=== PATIENT | male | born 1945 | race Caucasian/White ===

== ENCOUNTER 2019-05-19 09:28 | Outpatient (CLI) | payer MEDICARE, SELFPAY | END 2019-05-19 09:29 | disposition home or self-care (01) | PROVIDERS: PCP Internal Medicine; Visit Provider Internal Medicine | DX: Z01.810 Encounter for preprocedural cardiovascular examination (principal) | CPT/HCPCS: 87081 ==

== ENCOUNTER 2019-06-06 09:34 | Outpatient (CLI) | payer MEDICARE, SELFPAY ==
--- NOTE | ~2019-06-06 | US_ITS ---
EXAMINATION: US retroperitoneal duplex ltd DATE: 06/06/2019 10:33 INDICATION: Hypertension. TECHNIQUE: Multiple grayscale, color Doppler, and pulsed Doppler images of the kidneys and renal fredrick robert were obtained. COMPARISON: CT abdomen and pelvis 06/23/2010 FINDINGS: The aorta peak systolic velocity is 68 cm/s. The right renal artery peak systolic velocity is 124 cm/ s in the proximal segment, 204 cm/s in the mid segment, and 237 cm/s in the distal segment. The left renal artery peak systolic velocity is 124 cm/s in the proximal segment, 218 cm/s in the mid segment, and 164 cm/s in the distal segment. IMPRESSION: 1. Elevated bilateral renal artery peak systolic velocities, consistent with bilateral renal artery stenosis. Note that the prior CT demonstrated no significant renal artery stenosis. Consider abdomen CTA. Reviewed, dictated and finalized at location A. FLAP BINDER IMPRESSION: 1. Elevated bilateral renal artery peak systolic velocities, consistent with b ilateral renal artery stenosis. Note that the prior CT demonstrated no signific ant renal artery stenosis. Consider abdomen CTA.
== END 2019-06-06 09:35 | disposition home or self-care (01) ==
LOC: ANHIMG 09:37
PROVIDERS: PCP Internal Medicine; Visit Provider Internal Medicine
DX: I10 Essential (primary) hypertension (principal); R93.5 Abnormal findings on diagnostic imaging of other abdominal regions, including retroperitoneum
CPT/HCPCS: 93976

== ENCOUNTER 2019-06-06 10:41 | Outpatient (CLI) | payer MEDICARE, SELFPAY ==
--- NOTE | 2019-06-12 16:25 | SLEEP_ITS ---
Basic Nocturnal Polysomnogram. DATE OF STUDY: 06/06/2019 REASON FOR STUDY: Hypersomnolence. HISTORY: This patient is a 74-year-old male, 67 inches tall, weighing 174 pounds with a body mass index of 27.2. He is retired, has a history of poor quality sleep with frequent snoring, which is loud enough that others complain about it. There is no family history of sleep-disordered breathing. He denies having trouble sleeping with a cold or gasping for breath at night. He denies other people complaining about his sleep. He denies sweating excessively at night or his heart pounding irregularly at night. He does not fall asleep during the day, does not fall asleep involuntarily or while driving. He does not have loss of muscle tone with strong emotion. He does not feel paralyzed on waking or falling asleep and does not have vivid dreamlike scene upon waking or falling asleep. He is never afraid to go to sleep. There are no nightmares. He does not recall having dreams. He rarely has racing thoughts. He does not feel sad, depressed, anxious, or have muscular tension. He does not notice parts of his body jerking. He denies kicking at night. He denies a crawly achy feeling in his legs. He does not have leg pain at night. He denies morning jaw pain. He rarely grinds his teeth at night. He is not bothered by pain during the day or at night. He does not wake up feeling stiff in the morning. Bedtime is 10:00 p.m., taking 30 to 40 minutes to fall asleep, waking twice at night. When he is awake at night, he will stay awake for 30 to 40 minutes. During this time, he will go to the bathroom. He wakes in the morning at 06:00 a.m. He estimates 8 hours of sleep at night. He denies taking naps. Naps are not refreshing. He feels better in the morning than other times of day. MEDICAL COMORBIDITIES: 1. He is due to have a right knee replacement on June 14. 2. Hyperlipidemia. 3. Hypertension. 4. Hypothyroidism. 5. Diabetes mellitus. 6. Leg cramps. MEDICATIONS: 1. Atorvastatin 40 mg a day. 2. Diltiazem 240 mg a day. 3. Hydralazine 50 mg 3 times a day. 4. Levothyroxine 75 mg a day. 5. Glimepiride 4 mg daily. 6. Tradjenta 5 mg a day. 7. Aspirin 81 mg a day. 8. Magnesium replacement once in the evening for leg cramps. 9. Fish oil 1200 mg twice a day. 10. Tylenol t.i.d. p.r.n., pain. HABITS: Quit tobacco in 1969. Currently does use alcohol. No mention about caffeine. DESCRIPTION OF THE STUDY: On the [place] Sleepiness Scale, the patient marked 0. This test was performed in lab as an unattended study using the [employer] multiple channel system including EOG, EEG, submental EMG, EKG, nasal and oral airflow using thermistor and nasal pressure sensors, chest and abdominal belts, body position data and pulse oximetry. This study was scored using [facility] guidelines. It was requested as a split night, but the patient had such fragmented sleep was not possible to acquire sufficient data early enough in the night. The patient had recording time of 454 minutes. The sleep time was 232 minutes. Sleep efficiency was extremely low 51.1%. Sleep latency was 10.9 minutes until the first minute of sleep. However, during the first hour plus, the patient was mainly awake. It is not mention whether or not the patient took an Ambien, but it does not appear that he took it. The REM latency was prolonged at 382.5 minutes. There were 66 awakenings and the patient spent 47.7% of the study, awake after sleep onset 211 minutes. Sleep architecture showed 9.5% stage 1 sleep, 39.7% stage 2 sleep, no stage 3 sleep and only 3.2% stage REM, 14 minutes. The patient spent 3.2% of the study supine, the remainder was nonsupine. Sleep architecture was abnormal with the majority of the night fragmen
== END 2019-06-06 10:42 | disposition home or self-care (01) ==
PROVIDERS: PCP Internal Medicine; Visit Provider Internal Medicine
DX: G47.10 Hypersomnia, unspecified (principal); G47.33 Obstructive sleep apnea (adult) (pediatric); G47.61 Periodic limb movement disorder; I10 Essential (primary) hypertension; E11.9 Type 2 diabetes mellitus without complications; G47.62 Sleep related leg cramps; E03.9 Hypothyroidism, unspecified
CPT/HCPCS: 93976; 95810

== ENCOUNTER 2020-07-17 10:44 | Outpatient (CLI) | payer MEDICARE, SELFPAY ==
--- NOTE | ~2020-07-17 | XR_ITS ---
EXAMINATION:XR_CERV2-3V_CR DATE: 07/17/2020 11:16 INDICATION: Neck pain TECHNIQUE: Lateral views of the neck in neutral, flexion, and extension are obtained. COMPARISON: None FINDINGS: There are 2 mm of anterolisthesis of C3 on C4 and C4 on C5. No laxity is present with flexi on or extension. There is no fracture. The odontoid is intact. There are changes of anterior fusion f rom C5 through C7 with interbody device placement. The vertebral body heights are maintained. There i s moderate multilevel facet osteoarthritis. Prevertebral soft tissues are normal. IMPRESSION: 1. Moderate cervical spondylosis and changes of anterior fusion without acute findings. Reviewed, dictated and finalized at location A. IMPRESSION: 1. Moderate cervical spondylosis and changes of anterior fusion without acute f indings.
== END 2020-07-17 10:45 | disposition home or self-care (01) ==
LOC: ANHIMG 10:52
PROVIDERS: PCP Internal Medicine; Visit Provider Internal Medicine
DX: M47.812 Spondylosis without myelopathy or radiculopathy, cervical region (principal)
CPT/HCPCS: 72040

== ENCOUNTER → 2021-04-04 07:28 | Outpatient (CLI) | payer MEDICARE, SELFPAY ==
--- NOTE | ~2021-04-04 | MR_ITS ---
EXAMINATION: MR cervical spine wo con EXAM DATE: 04/04/2021 08:17 INDICATION: Cervicalgia neck pain to left shoulder x6mos, prev c-sp surg x12yrs. TECHNIQUE: Multi-sequential, multiplanar MR images of the cervical spine were obtained without contra st. Axial T2, axial T2 MERGE sequence. Sagittal T1, T2, T2 fat saturation images also obtained. Com parison is made to prior examination from 03/04/2011. FINDINGS: Compared to 2011, cervical fusion C5-7. There is moderate disc disease at C4-5 with 2 mm a nterolisthesis. Mild to moderate disc disease at C7-T1. The spinal cord signal intensity and intrinsi c morphology is normal. Cervicomedullary junction is normal in appearance. Paraspinal soft tissue is unremarkable. Level by level evaluation: C2-C3: Disc does not extend beyond the endplate margin. Uncovertebral joint arthropathy: Mild to moderate left. Facet joint arthropathy: Moderate to severe left, mild to moderate right. Neural foraminal stenosis: Moderate to severe left. Central canal stenosis: No stenosis. C3-C4: There is a mild diffuse disc bulge. Uncovertebral joint arthropathy: Moderate bilateral. Facet joint arthropathy: Moderate to severe bilateral. Neural foraminal stenosis: Moderate to severe bilateral. Central canal stenosis: No stenosis. C4-C5: There is a mild to moderate diffuse disc bulge. Uncovertebral joint arthropathy: Moderate bilateral. Facet joint arthropathy: Severe left, moderate right. Neural foraminal stenosis: Moderate to severe left, moderate right. Central canal stenosis: Mild. C5-C6: This level is fused. Uncovertebral joint arthropathy: Moderate to severe but fused right. Moderate left. Facet joint arthropathy: Moderate bilateral. Neural foraminal stenosis: Moderate bilateral. Central canal stenosis: No stenosis. C6-C7: This level is fused. Uncovertebral joint arthropathy: Moderate but fused bilateral. Facet joint arthropathy: Mild to moderate bilateral. Neural foraminal stenosis: Moderate left, mild to moderate right. Central canal stenosis: No stenosis. C7-T1: Disc does not extend beyond the endplate margin. Uncovertebral joint arthropathy: Moderate bilateral. Facet joint arthropathy: Moderate left, mild right. Neural foraminal stenosis: Moderate left, mild right. Central canal stenosis: No stenosis. IMPRESSION: 1. C5-7 cervical fusion. 2. Multilevel neural foraminal stenosis as detailed above. Reviewed, dictated and finalized at location B. ICAL LIBRARIAN
--- NOTE | ~2021-04-04 | XR_ITS ---
XR lumbar spine 2-3V DATE: 04/04/2021 08:38 INDICATION: Low back pain TECHNIQUE: AP, lateral, coned lateral lumbosacral views COMPARISON: None FINDINGS: There is diffuse osteopenia. There is mild dextroscoliosis of the thoracolumbar spine. Diffuse idiopathic skeletal hyperostosis of the thoracic spine. Prominent multilevel degenerative disc disease of the lumbar spine, moderately severe to L2-L3 4 and severe L4-5 and L5-S1. No fracture or bone destruction is evident. The lumbar pedicles are intact. The sacroiliac joints are intact. Abdominal aortic calcification, without apparent aneurysm. IMPRESSION: Degenerative disc disease of the lumbar and lumbosacral spine Diffuse idiopathic skeletal hyperostosis of the thoracic spine. Mild dextro scoliosis of the thoracolumbar spine Reviewed, dictated and finalized at location A. DING MATERIALS SALES ATTENDANT
== END ==
PROVIDERS: PCP Internal Medicine; Visit Provider Nurse Practitioner Family
DX: M54.2 Cervicalgia (principal); Z98.1 Arthrodesis status; M48.02 Spinal stenosis, cervical region; M51.36 Other intervertebral disc degeneration, lumbar region; M48.14 Ankylosing hyperostosis [Forestier], thoracic region; M41.85 Other forms of scoliosis, thoracolumbar region
CPT/HCPCS: 72100; 72141

== ENCOUNTER → 2021-04-25 08:47 | Outpatient (CLI) | payer MEDICARE, SELFPAY ==
--- NOTE | ~2021-04-25 | MR_ITS ---
EXAMINATION: MR lumbar spine wo con EXAM DATE: 04/25/2021 09:43 INDICATION: Other low back pain . TECHNIQUE: Multi-sequential, multiplanar MR images of the lumbar spine were obtained without contrast . Sagittal T1, T2, T2 fat saturation images. Axial T2 weighted images. Correlation is made to lumba r x-ray 04/04/2021. FINDINGS: Mild to moderate upper lumbar dextroscoliosis. There is moderate to severe disc disease L4- 5 and L5-S1. Mild loss of the L4 and L5 vertebral body heights, chronic compression fractures. The ot her vertebral body heights are maintained. Mild to moderate L1-2 and L2-3 disc disease. There is 4 mm retrolisthesis L5 on S1. Moderate disc disease at T10-11 and T11-12. The conus medullaris terminates at the L1/2 level and has normal signal intensity and morphology. Paraspinal soft tissue is unremar kable. Level by level evaluation: T12-L1: Disc does not extend beyond the endplate margin. Facet arthropathy: Minimal. Neural foraminal stenosis: No stenosis. Central canal stenosis: No stenosis. L1-L2: Disc does not extend beyond the endplate margin. Facet arthropathy: Mild. Neural foraminal stenosis: No stenosis. Central canal stenosis: No stenosis. L2-L3: There is a moderate diffuse disc bulge, superimposed left central extrusion, inferior migratio n. Facet arthropathy: Mild to moderate. Neural foraminal stenosis: Moderate to severe left, moderate right. Central canal stenosis: Moderate, particularly left lateral recess. L3-L4: There is a moderate diffuse disc bulge. Facet arthropathy: Moderate. Neural foraminal stenosis: Moderate left, mild to moderate right. Central canal stenosis: Moderate. L4-L5: There is a large diffuse disc bulge. Facet arthropathy: Severe right, moderate left. Neural foraminal stenosis: Mild to moderate. Central canal stenosis: No stenosis. L5-S1: There is a moderate diffuse disc bulge. Facet arthropathy: Moderate to severe. Neural foraminal stenosis: Severe left, moderate to severe right. Central canal stenosis: Mild to moderate. IMPRESSION: 1. Moderate to severe lumbar spondylosis, left L5-S1 most narrowed followed by L2-3. 2. L2-3 disc bulge and superimposed left central extrusion with inferior migration to L3 inferior en dplate, some mass effect on traversing L3 nerve root in the lateral recess. Reviewed, dictated and finalized at location A. INSTALLER REPAIRER IMPRESSION: 1. Moderate to severe lumbar spondylosis, left L5-S1 most narrowed followed by L2-3. 2. L2-3 disc bulge and superimposed left central extrusion with inferior migra tion to L3 inferior endplate, some mass effect on traversing L3 nerve root in t he lateral recess.
== END ==
PROVIDERS: Visit Provider Nurse Practitioner Family
DX: M47.816 Spondylosis without myelopathy or radiculopathy, lumbar region (principal); M51.26 Other intervertebral disc displacement, lumbar region
CPT/HCPCS: 72148

== ENCOUNTER → 2021-07-09 10:35 | Outpatient (CLI) | payer MEDICARE, SELFPAY ==
--- NOTE | ~2021-07-09 | MR_ITS ---
EXAMINATION: MR brain IAC wo/w con DATE: 07/09/2021 11:32 INDICATION: Dizziness and giddiness. TECHNIQUE: Magnetic resonance imaging (MRI) of the brain, brainstem, and internal auditory canals was performed without and with 14 mL MultiHance intravenous contrast. Sequences included sagittal and ax ial T1-weighted FSE, axial diffusion-weighted FS EPI, axial T2*-weighted GRE, axial T2-weighted FLAIR Propeller, axial T2-weighted Propeller, small prmzi-dh-dyqr coronal FIESTA, small ueodi-pt-emhe sallie nal T1-weighted FSE, and small wcogf-bu-gqda axial T1-weighted SPGR. Postcontrast sequences included axial T1-weighted FSE, small ehdrg-re-ffie coronal T1-weighted FSE, and small gbaqt-oj-awxf axial T1- weighted SPGR. Apparent diffusion coefficient (ADC) maps were created. COMPARISON: Brain MRI 10/15/2005 FINDINGS: There are scattered areas of nonspecific increased T2-weighted signal intensity in the cere bral white matter. There is no intracranial hemorrhage, acute infarction, or abnormal intracranial ma ss lesion. The ventricles are normal in size. The paranasal sinuses are clear. The orbits are normal. There is a trace right mastoid effusion. IMPRESSION: 1. Mild nonspecific cerebral white matter disease, which likely represents chronic small vessel ische carolyn disease, worsened from 10/15/2005. Reviewed, dictated and finalized at location A. IMPRESSION: 1. Mild nonspecific cerebral white matter disease, which likely represents business associate rhonda small vessel ischemic disease, worsened from 10/15/2005.
[2021-07-09 11:02] LABS: Estimated Glomerular Filt Rate 42
== END ==
PROVIDERS: PCP Internal Medicine; Visit Provider Internal Medicine
DX: R42 Dizziness and giddiness (principal); Z74.09 Other reduced mobility; R90.82 White matter disease, unspecified
CPT/HCPCS: 70553; A9577

== ENCOUNTER 2021-07-10 01:19 | Day surgery (SDC) | payer MEDICARE, SELFPAY ==
[2021-06-26 13:37] VITALS: BMI 24.8
[2021-07-10 09:55] VITALS: BP 140/95; PULSE 107; RESP 16; TEMP 36.2; O2SAT 99; BMI 24.5
[2021-07-10] MEDS: LACTATED RINGERS 1,000 ML 150 ML IV CONT (10:00)
[2021-07-10 10:09] LABS: Glucose Point of Care 199 mg/dl (65-105)
--- NOTE | 2021-07-10 10:46 | WPDGICN ---
Assessment and Plan Assessment and plan (1) Blood in stool: Code(s): K92.1 - Melena Status: Acute Assessment and Plan: Colonoscopy with possible biopsy or polypectomy or cautery or injection of substances. GI Consult Note Consult date/time: 07/10/21 10:46 HPI: Kingsley Eng is a 76 year old male Referred for investigation of rectal bleeding. About a month ago he had bright red blood in his stools. He some blood 3 consecutive days. He does not recall straining but he admits that his stools have been a little harder lately. He was not having any abdominal pain or rectal pain. His most recent hemoglobin was 14.3. 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), multiple sites DM type 2 (diabetes mellitus, type 2) Encounter for Medicare annual wellness exam Encounter for routine adult health examination without abnormal findings Encounter for special screening examination for neoplasm of prostate Follow up Hyperlipidemia Hypersomnolence Hypothyroidism (acquired) Impaired functional mobility, balance, gait, and endurance Insomnia Neck Pain Non-healing skin lesion On detention drug therapy Oral lesion JOHN on CPAP Surgical History Surgical History History of lumbosacral spine surgery Status post total right knee replacement Family History Family History Father Family history of heart disease in male family member before age 55 Mother Family history of heart disease in male family member before age 55 Sibling Family history of heart disease in male family member before age 55 Social History Social History Smoking status: Former smoker Tobacco type: cigarettes Smoking end date: 04/12/69 Alcohol intake: current Drinks per week: 7 Substance use: never Living arrangements: with family Spiritual care concerns: No Meds Home Medications and Allergies Home Medications Medication Instructions Recorded Confirmed Type aspirin 81 mg tablet,delayed 81 mg PO DAILY 07/26/19 07/10/21 History release atorvastatin 40 mg tablet 40 mg PO DAILY #90 tablet 05/15/21 07/10/21 Rx linagliptin 5 mg tablet 5 mg PO QAM #90 tablet 05/15/21 07/10/21 Rx metformin 500 mg tablet,extended 1,000 mg PO DAILY #180 tablet 05/15/21 07/10/21 Rx release 24 hr diltiazem HCl 240 mg PO DAILY 06/26/21 07/10/21 History levothyroxine 75 mcg PO DAILY 06/26/21 07/10/21 History flash glucose sensor See Rx Instructions .ROUTE 07/07/21 07/10/21 Rx .COMPLEX #2 ea Allergies Allergy/AdvReac Type Severity Reaction Status Date / Time No Known Allergies Allergy Verified 07/10/21 09:54 Vital Signs Vital Signs - 24 hr 07/10/21 09:55 Temperature 36.2 C L Pulse Rate 107 H Respiratory Rate 16 Blood Pressure 140/95 H Pulse Oximetry 99 Exam Const: General: alert Orientation/consciousness: patient oriented x3 Resp: Auscultation: clear to auscultation bilaterally Cardio: Rhythm: regular rhythm GI: GI Palp: Yes Soft to palpation and No Tenderness to palpation present (GI) Neuro: General: patient oriented x3
--- NOTE | 2021-07-10 10:51 | WPDANESEPPF ---
Anes - Initial Pre Proc Eval Procedure: Operation Date: 07/10/21 11:30 Proposed Procedures p Colonoscopy - Winston Gillette MD Date/Time: 07/10/21 10:51 Surgeon: Winston Gillette MD Pre Op Diagnosis: rectal bleeding Patient Data Age: 76 Gender: M Height: 1.7 m Weight: 71.2 kg Last Vital Signs Temp 97.2 F L 07/10/21 09:55 Pulse 107 H 07/10/21 09:55 Resp 16 07/10/21 09:55 BP 140/95 H 07/10/21 09:55 Pulse Ox 99 07/10/21 09:55 Allergies Allergy/AdvReac Type Severity Reaction Status Date / Time No Known Allergies Allergy Verified 07/10/21 09:54 Home Medications Medication Instructions Recorded Confirmed Type aspirin 81 mg tablet,delayed 81 mg PO DAILY 07/26/19 07/10/21 History release atorvastatin 40 mg tablet 40 mg PO DAILY #90 tablet 05/15/21 07/10/21 Rx linagliptin 5 mg tablet 5 mg PO QAM #90 tablet 05/15/21 07/10/21 Rx metformin 500 mg tablet,extended 1,000 mg PO DAILY #180 tablet 05/15/21 07/10/21 Rx release 24 hr diltiazem HCl 240 mg PO DAILY 06/26/21 07/10/21 History levothyroxine 75 mcg PO DAILY 06/26/21 07/10/21 History flash glucose sensor See Rx Instructions .ROUTE 07/07/21 07/10/21 Rx .COMPLEX #2 ea Laboratory Tests 07/10/21 10:07 POC Capillary Glucose 199 mg/dl H mg/dl (65-105) Patient hx anesthesia problems: none Family hx anesthesia problems: none Results Review: All pre-operative results and documents have been reviewed as part of the pre-operative evaluation. 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), multiple sites DM type 2 (diabetes mellitus, type 2) Encounter for Medicare annual wellness exam Encounter for routine adult health examination without abnormal findings Encounter for special screening examination for neoplasm of prostate Follow up Hyperlipidemia Hypersomnolence Hypothyroidism (acquired) Impaired functional mobility, balance, gait, and endurance Insomnia Neck Pain Non-healing skin lesion On terminologist drug therapy Oral lesion JOHN on CPAP Surgical History Surgical History History of lumbosacral spine surgery Status post total right knee replacement Family History Family History Father Family history of heart disease in male family member before age 55 Mother Family history of heart disease in male family member before age 55 Sibling Family history of heart disease in male family member before age 55 Social History Social History Smoking status: Former smoker Tobacco type: cigarettes Smoking end date: 04/12/69 Alcohol intake: current Drinks per week: 7 Substance use: never Living arrangements: with family Spiritual care concerns: No Anes - Eval Final PreProcedure Day of Procedure 07/10/21 10:51 Patient weight: normal Heart: regular rate and rhythm Lungs: clear to auscultation Airway: Mallampati scale class II Neurological: alert and oriented Last oral intake: >/= 8 hours ASA classification: III Emergent: no Anesthetic plan: proceed Anesthesia type and monitoring: general GIVS and standard monitoring Results Review: All pre-operative results and documents have been reviewed as part of the pre-operative evaluation. Informed Consent: The patient's anesthetic plan and its attendant risks and benefits were discussed with the patient/family/POA. Questions were solicited and answers provided to the satisfaction of the patient/
[2021-07-10 11:52] VITALS: BP 99/59; PULSE 74; RESP 13; O2SAT 96
[2021-07-10 12:02] VITALS: BP 118/80; PULSE 76; RESP 15; O2SAT 96
[2021-07-10 12:12] VITALS: BP 130/87; PULSE 78; RESP 15; O2SAT 98
== END 2021-07-10 12:30 | disposition home or self-care (01) ==
PROVIDERS: PCP Internal Medicine; Visit Provider Internal Medicine Gastroenterology
PROC: 0DJD8ZZ Inspection of Lower Intestinal Tract, Via Natural or Artificial Opening Endoscopic (ICD-10-PCS; CPT 45378; principal; 2021-07-10 11:30)
DX: K92.1 Melena (principal); K64.8 Other hemorrhoids; K57.30 Diverticulosis of large intestine without perforation or abscess without bleeding; D12.4 Benign neoplasm of descending colon; I12.9 Hypertensive chronic kidney disease with stage 1 through stage 4 chronic kidney disease, or unspecified chronic kidney disease; E11.22 Type 2 diabetes mellitus with diabetic chronic kidney disease; N18.9 Chronic kidney disease, unspecified; E78.5 Hyperlipidemia, unspecified; E03.9 Hypothyroidism, unspecified; G47.33 Obstructive sleep apnea (adult) (pediatric); Z87.891 Personal history of nicotine dependence; Z79.82 Long term (current) use of aspirin; Z79.84 Long term (current) use of oral hypoglycemic drugs
CPT/HCPCS: 45385; 82948; 88305; J2704; J7120

== ENCOUNTER → 2021-10-21 07:39 | Outpatient (CLI) | payer MEDICARE, SELFPAY ==
--- NOTE | ~2021-10-21 | MR_ITS ---
EXAMINATION: MR thoracic spine wo con, MR sacrum wo con, MR lumbar spine wo con DATE: 10/21/2021 08:33 INDICATION: Right-sided low back pain TECHNIQUE: 1. Magnetic resonance imaging (MRI) of the thoracic spine was performed without intravenous contrast. Sagittal localizer T1-weighted FSE of the cervicothoracic spine was obtained. Thoracic spine sequenc es included sagittal T2-weighted FSE, sagittal T1-weighted SE, Sagittal T2-weighted FS FSE, and axial T2-weighted FSE. 2. MRI of the lumbar spine was performed without intravenous contrast. Sequences included sagittal T2 -weighted FSE, sagittal T2-weighted FS FSE, sagittal T1-weighted FSE, and axial T2-weighted FSE. 3. MRI of the sacrum and coccyx was performed without intravenous contrast. Sequences included sagitt al PD-weighted FSE, coronal T2-weighted FS FSE, T1-weighted FSE, and T2-weighted FSE and oblique axia l T1-weighted FSE and T2-weighted FSE. COMPARISON: Lumbar spine MR dated 04/25/2021 FINDINGS: THORACIC SPINE MRI: Magnetic field artifact associated with anterior plate and screw fixation for anterior spinal fusion at C5-C7. 15 degrees thoracic levoscoliosis measured between T3 and T11. Sagittal alignment is normal . Vertebral body heights are normal. Moderate disc height loss at T10-T11 and T11-T12 with small Schm orl's nodes along the inferior endplates at both T10 and T11. Mild disc height loss at T3-T4 through T9-T10. Left foraminal zone disc protrusions, small at T1-T2 and more prominent at T2-T3. Tiny centra l disc protrusion at T4-T5. Mild diffuse disc bulge at T6-T7, T10-T11 and T11-T12 resulting in mild c entral canal stenosis at both levels. No central canal stenosis at the remaining thoracic levels. Mod erate bilateral facet osteoarthritis at T10-T11 resulting in moderate left-sided and mild right-sided neural foraminal stenosis. Mild facet osteoarthritis scattered throughout the remainder of the thora cic spine. Additional moderate neural foraminal stenosis on the left and mild neural foraminal stenos is on the right at T1-T2 and on the left at T8-T9 and T9-T10. Cord signal is normal. Likely small rommel unt of postoperative scarring in the soft tissues posterior and along the left side of the L4 spinous process. LUMBAR SPINE MRI: Mild S-shaped curvature in the lumbar spine with mild dextrocurvature associated with mild to moderat e left-sided predominant disc height loss at L2-L3 and mild levocurvature associated with severe disc height loss at L4-L5 with right-sided predominant degenerative endplate changes with slight loss of right-sided vertebral body height at both L4 and L5. 3 mm retrolisthesis L5 on S1. Remaining vertebra l body heights are normal. Fibrovascular degenerative endplate changes at both L4-L5 and L5-S1 the la tter with additional severe disc height loss. Mild disc height loss at L3-L4. The following disc leve ls are specifically discussed: T12-L1: The disc does not extend beyond the endplate margin. There is mild bilateral facet joint oste oarthritis. There is no neural foraminal stenosis. There is no central canal stenosis. L1-L2: Minimal left foraminal zone disc protrusion. There is mild bilateral facet joint osteoarthriti s. There is minimal bilateral neural foraminal stenosis. There is no central canal stenosis. L2-L3: Disc is bulging with superimposed annular fissure and disc extrusion extending from the left p aracentral to the right foraminal zone with disc material extending up to 1 cm caudal to the level of the superior endplate of L3 and the left paracentral zone. There is moderate left and mild right fac et joint osteoarthritis. There is moderate right and moderate to severe left neural foraminal stenosi s. There is moderate central canal stenosis with asymmetric narrowing of the lateral recesses, modera te on the left and mild on the right. L3-L4: Disc is bulging. There is moderate right and severe
--- NOTE | ~2021-10-21 | XR_ITS ---
XR hip RT min 3V w AP pelvis DATE: 10/21/2021 08:55 INDICATION: Right hip pain TECHNIQUE: AP pelvis. AP and lateral views of right hip. COMPARISON: None FINDINGS: No pelvic fracture or bone destruction. The pubic symphysis and sacroiliac joints are intac t. Hip joint spaces are symmetric and relatively preserved. No fracture, dislocation, avascular necrosis or bone destruction of the right hip. Prominent degenerative disc disease at L4-5 and L5-S1 IMPRESSION: No significant abnormality of the right hip Prominent degenerative disc disease at L4-5 and L5-S1. Reviewed, dictated and finalized at location A.
== END ==
PROVIDERS: PCP Internal Medicine; Visit Provider Internal Medicine
DX: M54.50 Low back pain, unspecified (principal); M47.814 Spondylosis without myelopathy or radiculopathy, thoracic region; M47.816 Spondylosis without myelopathy or radiculopathy, lumbar region; M47.898 Other spondylosis, sacral and sacrococcygeal region; Z98.1 Arthrodesis status; M51.37 Other intervertebral disc degeneration, lumbosacral region
CPT/HCPCS: 72146; 72148; 72195; 73502

== ENCOUNTER 2021-11-24 13:34 | Outpatient (CLI) | payer MEDICARE, SELFPAY ==
--- NOTE | ~2021-11-24 | US_ITS ---
EXAMINATION: US renal BI DATE: 11/24/2021 14:48 INDICATION: Retention of urine, unspecified. TECHNIQUE: Multiple ultrasound grayscale images of the kidneys were obtained. COMPARISON: Ultrasound kidneys 04/24/2013 FINDINGS: The right kidney measures 11.6 x 5.9 x 5.9 cm. The left kidney measures 11.3 x 5.4 x 5.8 cm. The kidn eys demonstrate normal parenchymal echogenicity. There are cysts in right kidney measuring up to 9 mm . There is no hydronephrosis. The prevoid bladder volume is 553 mL. The postvoid bladder volume is 15 8 mL. IMPRESSION: 1. Urinary retention in the bladder. Reviewed, dictated and finalized at location A.
[2021-11-24 14:59] LABS: Appearance Urine Clear (Clear); Bilirubin Urine Negative (Negative); Blood Urine Negative (Negative); Color Urine Yellow (Yellow); Glucose Urine UA 1+ mg/dL (Negative); Ketones Urine Negative (Negative); Leukocyte Esterase Ur Negative LEU/UL (Negative); Nitrate Urine Negative (Negative); Protein Urine 1+ mg/dL (Negative); Specific Grav Ur 1.015 (1.001-1.035); Urobilinogen Urine 0.2 mg/dL (<2.0); pH Urine 5.5 (5.0-9.0)
[2021-11-24 15:01] LABS: Anion Gap 11 mmol/L (8-16); Blood Urea Nitrogen 30 mg/dL (9-20); Calcium 9.4 mg/dL (8.4-10.2); Carbon Dioxide 22 mmol/L (22-30); Chloride 102 mmol/L (98-107); Estimated Glomerular Filt Rate 49; Glucose 213 mg/dL (65-110); Potassium 4.2 mmol/L (3.4-5.0); Sodium 135 mmol/L (137-145)
[2021-11-24 15:08] LABS: Mucus Urine Rare /lpf; RBC Urine 0-2 /hpf (0-2); WBC Urine 0-3 /hpf
[2021-11-24 15:11] LABS: Add Urine Microscopic? YES
== END 2021-11-24 13:35 | disposition home or self-care (01) ==
LOC: ANHIMG 13:44
PROVIDERS: PCP Internal Medicine; Visit Provider Internal Medicine
DX: R63.4 Abnormal weight loss (principal); R33.9 Retention of urine, unspecified
CPT/HCPCS: 36415; 76775; 80048; 81001

== ENCOUNTER 2021-11-25 07:55 | Outpatient (CLI) | payer MEDICARE, SELFPAY ==
--- NOTE | ~2021-11-25 | XR_ITS ---
EXAMINATION: XR chest 2V DATE: 11/25/2021 08:10 INDICATION: Unexplained weight loss. TECHNIQUE: PA and lateral views of the chest were obtained. COMPARISON: Chest radiograph dated 06/29/2011 FINDINGS: The lungs remain clear with no focal airspace opacities, pulmonary edema, pleural effusion or pneumot horax. The cardiomediastinal silhouette is normal. . Mild to moderate thoracic spondylosis with bridg ing osteophytes at multiple levels consistent with diffuse idiopathic skeletal hyperostosis (DISH). Monika ann cervical anterior spinal fusion with anterior plate and screw fixation IMPRESSION: 1. No acute cardiopulmonary disease. Reviewed, dictated and finalized at location A.
== END 2021-11-25 07:56 | disposition home or self-care (01) ==
LOC: ANHIMG 07:56
PROVIDERS: PCP Internal Medicine; Visit Provider Internal Medicine
DX: R63.4 Abnormal weight loss (principal); R33.9 Retention of urine, unspecified; Z98.1 Arthrodesis status; M47.814 Spondylosis without myelopathy or radiculopathy, thoracic region
CPT/HCPCS: 71046

== ENCOUNTER 2022-06-26 09:25 | Outpatient (CLI) | payer MEDICARE, SELFPAY ==
--- NOTE | ~2022-06-26 | XR_ITS ---
EXAMINATION: XR UGI w small bowel DATE: 06/26/2022 11:34 INDICATION: Abnormal weight loss. TECHNIQUE: The patient drank thick barium, gas-producing crystals, and thin barium. Fluoroscopy of th e esophagus, stomach, and small bowel was performed. Fluoroscopy exposure time was 0.3 minutes. Radio graphs of the abdomen were obtained. The total number of images was 264. COMPARISON: CT abdomen and pelvis 06/23/2010 FINDINGS: UPPER GASTROINTESTINAL SERIES: There is no mass or stricture of the esophagus. Esophageal motility is normal. There is no hiatal her cally. There was no gastroesophageal reflux with provocative maneuvers. The stomach shows a normal fold ing pattern. There are changes of anterior fusion procedure in cervical spine. SMALL BOWEL SERIES: The small bowel shows a normal folding pattern. Specifically, the terminal ileum is normal. Transit t janelle to the colon was 45 minutes. IMPRESSION: 1. Normal upper gastrointestinal series. 2. Normal small bowel series. Reviewed, dictated and finalized at location A.
--- NOTE | ~2022-06-26 | US_ITS ---
Abdominal Sonogram: Real-time sonographic imaging of the abdomen was performed. Clinical History: Abnormal weight loss Findings: The liver appears heterogeneous, with no evidence of mass lesion or bile duct dilatation. Main portal vein demonstrates normal direction of flow. The spleen is normal in size without evidence of focal lesion. The gallbladder is well distended, and appears normal with no evidence of gallston e or wall thickening. The common bile duct measures 5 mm. There is atherosclerotic change of the abdo jazlyn aorta. Visualized pancreas and IVC are grossly unremarkable. The right kidney measures 10.2 cm in length and the left kidney measures 9.9 cm. There is no hydronephrosis or renal calculus. Impression: Heterogeneous hepatic echotexture. Correlate for fatty infiltration or other chronic liver disease. Reviewed, dictated and finalized at [facility]. Impression: Heterogeneous hepatic echotexture. Correlate for fatty infiltration or other ch ronic liver disease.
== END 2022-06-26 09:26 | disposition home or self-care (01) ==
PROVIDERS: PCP Internal Medicine; Visit Provider Internal Medicine
DX: R63.4 Abnormal weight loss (principal); R68.81 Early satiety; K76.9 Liver disease, unspecified
CPT/HCPCS: 74240; 74248; 76700

== ENCOUNTER 2022-09-01 13:56 | Outpatient (CLI) | payer MEDICARE, SELFPAY ==
--- NOTE | ~2022-09-01 | XR_ITS ---
XR hip RT 2V w AP pelvis 09/01/2022 14:14 Indication: Right hip pain Procedure: AP pelvis and 2 views right hip Comparison: 10/21/2021 Findings: There is mild bilateral osteoarthritis of the hips. Pelvic rings are intact. Lower lumbar s pondylosis partially visualized. No fracture or traumatic malalignment. No significant soft tissue ab normality. No foreign bodies. Impression: 1: Mild osteoarthritis of the hips. Reviewed, dictated and finalized at location B. Impression: 1: Mild osteoarthritis of the hips.
== END 2022-09-01 13:57 | disposition home or self-care (01) ==
PROVIDERS: PCP Internal Medicine; Visit Provider Internal Medicine
DX: M16.11 Unilateral primary osteoarthritis, right hip (principal)
CPT/HCPCS: 73502

== ENCOUNTER 2023-03-18 19:00 | Emergency (ER) | payer MEDICARE, SELFPAY ==
[2023-03-18 19:16] VITALS: BP 128/56; PULSE 57; RESP 20; TEMP 36.4; O2SAT 98
== END 2023-03-18 19:20 | disposition left against medical advice (07) ==
PROVIDERS: PCP Internal Medicine
DX: R06.02 Shortness of breath (principal)
CPT/HCPCS: 99199

== ENCOUNTER 2023-03-19 08:28 | Outpatient (CLI) | payer MEDICARE, SELFPAY ==
--- NOTE | ~2023-03-19 | CT_ITS ---
EXAMINATION: CT abdomen pelvis wo con DATE: 03/19/2023 08:46 INDICATION: Abdominal pain TECHNIQUE: Computed tomography (CT) of the abdomen and pelvis was performed without intravenous contr ast. The dose-length product was 521.32 mGy-cm. Automated exposure control and iterative reconstructi on technique were employed. COMPARISON: CT dated 06/23/2010 FINDINGS: There are coarse interstitial changes of the right lung base with traction bronchiectasis a nd interlobular septal thickening suggesting chronic interstitial fibrosis. Trace right pleural effus ion. No heart size normal. No significant pleural or pericardial effusion. There is cirrhosis of the liver. Small subcentimeter hypodensity right hepatic lobe, most likely benign cysts. The spleen, panc reas, adrenal glands and left kidney are unremarkable. There is a 3 mm nonobstructing right renal sto ne. No hydronephrosis. Gallbladder is present. Colonic diverticulosis without evidence for diverticul itis. There is dilated small bowel with air-fluid levels in the left upper and midabdomen. Colonic di verticulosis without evidence for diverticulitis. Gallbladder is present. Severe lumbar spondylosis. IMPRESSION: 1. Dilated proximal small bowel with air-fluid levels, suspicious for bowel obstruction. 2: Cirrhosis of the liver. 3: Coarse interstitial infiltrates of the right lower lung, suspicious for chronic fibrosis. Reviewed, dictated and finalized at location B. FILLER IMPRESSION: 1. Dilated proximal small bowel with air-fluid levels, suspicious for bowel obs truction. 2: Cirrhosis of the liver. 3: Coarse interstitial infiltrates of the right lower lung, suspicious for chr onic fibrosis.
[2023-03-19 09:47] LABS: Appearance Urine Clear (Clear); Bacteria Urine None Seen /hpf; Bilirubin Urine Negative (Negative); Blood Urine Negative (Negative); Color Urine Yellow (Yellow); Glucose Urine UA 2+ mg/dL (Negative); Ketones Urine Negative (Negative); Leukocyte Esterase Ur Negative LEU/UL (Negative); Nitrate Urine Negative (Negative); Non Pathogenic Casts 0-2; Protein Urine 2+ mg/dL (Negative); RBC Urine 0-2 /hpf (0-2); Specific Grav Ur 1.021 (1.001-1.035); Squamous Epithelial Cell Urine None seen /hpf (Few); Urobilinogen Urine 0.2 mg/dL (<2.0); WBC Urine 0-5 /hpf
[2023-03-19 09:47] LABS: Basophils Percent Auto 0.2 % (0.2-1.2); Eosinophils Percent Auto 0.1 % (0-4.4); Hematocrit 39.1 % (42.0-52.0); Hemoglobin 12.7 g/dL (14.0-18.0); Immature Granulocyte Absolute 0.09 K/mm3 (0.00-0.031); Immature Granulocyte Percent A 0.6 % (0-0.5); Lymphocytes Absolute Auto 1.02 K/mm3 (0.9-3.2); Lymphocytes Percent Auto 6.7 % (18.3-44.2); Mean Corpuscular HGB Conc 32.5 g/dl (32-36); Mean Corpuscular Hemoglobin 30.5 pg (26-34); Mean Corpuscular Volume 93.8 fl (80-100); Mean Platelet Volume 11.2 fl (7.4-10.4); Monocytes Absolute Auto 1.9 K/mm3 (0.1-0.6); Monocytes Percent Auto 12.2 % (2.6-8.5); Neutrophils Absolute Auto 12.2 K/mm3 (1.3-6.7); Neutrophils Percent Auto 80.2 % (45.5-73.1); Platelet Count Result 211 k/mm3 (150-375); Red Blood Count 4.17 M/mm3 (4.6-6.20); Red Cell Distribution Width 14.1 % (11.5-14.5); White Blood Count 15.2 K/mm3 (4.5-10.0)
[2023-03-19 09:54] LABS: Add Urine Microscopic? YES
[2023-03-19 09:58] LABS: Alanine Aminotransferase 50 U/L (6-50); Albumin Level 4.5 g/dL (3.5-5.1); Alkaline Phosphatase 83 U/L (38-126); Anion Gap 12 mmol/L (8-16); Aspartate Amino Transferase 51 U/L (17-59); Blood Urea Nitrogen 44 mg/dL (9-20); Calcium 9.4 mg/dL (8.4-10.2); Carbon Dioxide 19 mmol/L (22-30); Chloride 103 mmol/L (98-107); Estimated Glomerular Filt Rate 24; Glucose 211 mg/dL (65-110); Potassium 4.3 mmol/L (3.4-5.0); Sodium 134 mmol/L (137-145)
== END 2023-03-19 08:29 | disposition home or self-care (01) ==
PROVIDERS: PCP Internal Medicine; Visit Provider Internal Medicine
DX: K74.60 Unspecified cirrhosis of liver (principal); R91.8 Other nonspecific abnormal finding of lung field; R10.819 Abdominal tenderness, unspecified site
CPT/HCPCS: 36415; 74176; 80053; 81001; 85025

== ENCOUNTER 2023-03-24 08:38 | Outpatient (CLI) | payer MEDICARE, SELFPAY ==
--- NOTE | ~2023-03-24 | XR_ITS ---
EXAMINATION: XR hip RT 2V w AP pelvis INDICATION: Right hip pain TECHNIQUE: AP view the pelvis and two views of the right hip are obtained. COMPARISON: 09/01/2022 FINDINGS: There is mild osteoarthritis of the hips. Bone alignment is normal. There is no fracture. IMPRESSION: 1. Mild osteoarthritis of the hips. Reviewed, dictated and finalized at location B. ILE BROKER
== END 2023-03-24 08:39 | disposition home or self-care (01) ==
PROVIDERS: PCP Internal Medicine; Visit Provider Orthopaedic Surgery
DX: M25.551 Pain in right hip (principal); M16.0 Bilateral primary osteoarthritis of hip
CPT/HCPCS: 73502

== ENCOUNTER 2023-03-29 15:24 | Outpatient (CLI) | payer MEDICARE, SELFPAY ==
--- NOTE | ~2023-03-29 | US_ITS ---
EXAMINATION: US carotid duplex BI DATE: 03/29/2023 16:55 INDICATION: Carotid atherosclerosis. Dizziness and giddiness. TECHNIQUE: Grayscale, color Doppler, and pulsed Doppler images of the cervical carotid arteries were obtained. The degree of vessel stenosis is placed in one of the following categories: normal, <50%, 5 0-69%, >=70% but less than near-occlusion, near-occlusion, or total occlusion. Note that percent sten osis relative to normal distal artery lumen diameter is indirectly measured from velocity measurement s as described by Miguel, et al. Radiology 2003; [id number]:340-346. COMPARISON: None. FINDINGS: RIGHT: The right common carotid artery (CCA) peak systolic velocity (PSV) is 59 cm/s. The right internal carotid artery (ICA) PSV is 57 cm/s. The right ICA end-diastolic velocity (EDV) is 20 cm/s. The right ICA/CCA PSV ratio is 1.0. Grayscale and color Doppler images yield an es timate of <50% diameter reduction from plaque in the ICA. The external carotid artery (ECA) PSV is 57 cm/s. There is antegrade flow in the right vertebral artery. LEFT: The left CCA PSV is 61 cm/s. The left ICA PSV is 80 cm/s. The left ICA EDV is 24 cm/s. The left ICA/C CA PSV ratio is 1.3. Grayscale and color Doppler images yield an estimate of <50% diameter reduction from plaque in the ICA. The ECA PSV is 102 cm/s. There is antegrade flow in the left vertebral artery . IMPRESSION: 1. <50% stenosis in the right internal carotid artery. 2. <50% stenosis in the left internal carotid artery. Reviewed, dictated and finalized at location A. SELOR AID
--- NOTE | ~2023-03-29 | MR_ITS ---
EXAMINATION: MR brain IAC wo/w con DATE: 03/29/2023 16:38 INDICATION: Dizziness and giddiness. Left ear pain and tinnitus. TECHNIQUE: Magnetic resonance imaging (MRI) of the brain and brainstem was performed without and with 15 mL Multihance intravenous contrast. Sequences included sagittal and axial T1-weighted FSE, axial diffusion-weighted FS EPI, axial T2*-weighted GRE, axial T2-weighted FLAIR Propeller, axial T2-weight ed Propeller, small wlyzm-cv-[id number] coronal FIESTA, small hlxpt-tm-mkur coronal T1-weighted FSE, and sm all ojlhn-xn-kpby axial T1-weighted SPGR. Postcontrast sequences included axial T1-weighted FSE, smal l inoyn-rm-vchc coronal T1-weighted FSE, and small fynek-md-yepd axial T1-weighted SPGR. Apparent dif fusion coefficient (ADC) maps were created. COMPARISON: 07/10/2019 FINDINGS: There are no areas of restricted diffusion to suggest acute infarction. No intracranial hemorrhage or abnormal intracranial mass lesion. There are scattered areas of nonspecific increased T2-weighted si gnal intensity in the cerebral white matter, predominantly involving the deep and periventricular whi te matter. There are no intraparenchymal signal abnormalities seen on the other pulse sequences. The ventricles are symmetric and normal in size. There are no abnormal extra-axial fluid collections. Pratik w voids are seen in the cerebral arteries on the T2-weighted sequences consistent with their expected patency. Unchanged trace right mastoid effusion. Mild mucosal thickening in the bilateral anterior e thmoid sinuses. Visualized orbits and soft tissues are unremarkable. There are no areas of abnormal e nhancement on the post contrast images. IMPRESSION: 1. No significant change in mild scattered nonspecific cerebral white matter T2 hyperintensity which is within normal limits for age and likely sequela of chronic small vessel ischemic disease. Reviewed, dictated and finalized at location A. EY ENGINE FIRER/FIREMAN IMPRESSION: 1. No significant change in mild scattered nonspecific cerebral white matter T2 hyperintensity which is within normal limits for age and likely sequela of chr onic small vessel ischemic disease.
== END 2023-03-29 15:25 | disposition home or self-care (01) ==
PROVIDERS: PCP Internal Medicine; Visit Provider Internal Medicine
DX: I65.23 Occlusion and stenosis of bilateral carotid arteries (principal); R11.0 Nausea; R11.10 Vomiting, unspecified; H93.12 Tinnitus, left ear; Z74.09 Other reduced mobility
CPT/HCPCS: 70553; 93880; A9577

== ENCOUNTER 2023-04-27 12:51 | Outpatient (CLI) | payer MEDICARE, SELFPAY ==
--- NOTE | 2023-04-27 14:30 | NEURO_ITS ---
Impression: # Diabetic complains of increasing lower extremity numbness. # Motor/sensory axonal somewhat asymmetrical neuropathy. # Abnormal Needle/EMG exam with neurogenic changes. Nerve Conduction Studies Anti Sensory Summary Table Stim Site NR Peak (ms) P-T Amp (?V) Site1 Site2 Delta-P (ms) Dist (cm) Luis Armando (m/s) Left Saphenous Anti Sensory (Ant Med Mall) NO RESPONSE 14cm NR 14cm Ant Med Mall 0.0 Right Saphenous Anti Sensory (Ant Med Mall) 14cm 4.3 15.9 14cm Ant Med Mall 4.3 0.0 Left Sup Fibular Anti Sensory (Ant Lat Mall) NO RESPONSE 14 cm NR 14 cm Ant Lat Mall 16.0 Right Sup Fibular Anti Sensory (Ant Lat Mall) 14 cm 5.2 16.3 14 cm Ant Lat Mall 5.2 16.0 31 Left Sural Anti Sensory (Lat Mall) NO RESPONSE Calf NR Calf Lat Mall 16.0 Right Sural Anti Sensory (Lat Mall) Calf 4.1 8.4 Calf Lat Mall 4.1 16.0 39 Motor Summary Table Stim Site NR Onset (ms) O-P Amp (mV) Site1 Site2 Delta-0 (ms) Dist (cm) Luis Armando (m/s) Left Peroneal Motor (Vastus Med) NO RESPONSE Ankle NR Popit Ankle 0.0 Popit NR Right Peroneal Motor (Vastus Med) NO RESPONSE Ankle NR Popit Ankle 0.0 Popit NR Left Tibial Motor (Abd Mcgowan Brev) DISPERSED RESPONSE Ankle NR Knee NR Right Tibial Motor (Abd Mcgowan Brev) Ankle 4.6 0.3 Knee Ankle 10.9 40.0 37 Knee 15.5 0.2 F Wave Studies NR F-Lat (ms) L-R F-Lat (ms) Left Peroneal (Mrkrs) (EDB) 40.00 Right Peroneal (Mrkrs) (EDB) DISPERSED RESPONSE NR Left Tibial (Mrkrs) (Abd Hallucis) NO RESPONSE NR Right Tibial (Mrkrs) (Abd Hallucis) 63.04 EMG Side Muscle Nerve Root Ins Act Fibs Amp Dur Recrt Comment Right AntTibialis Dp Br Fibular L4-5 Nml Nml Nml >12ms Reduced Right Gastroc Tibial S1-2 Nml Nml Nml >12ms Reduced Right Fibularis Long Sup Br Fibular L5-S1 Nml Nml Nml >12ms Reduced Right Flex Dig Long Tibial L5-S2 Nml Nml Nml >12ms Reduced Right Ext Dig Brev Dp Br Fibular L5, S1 Nml Nml Nml >12ms Reduced Left AntTibialis Dp Br Fibular L4-5 Nml Nml Nml >12ms Reduced Left Gastroc Tibial S1-2 Nml Nml Nml >12ms Reduced Left Fibularis Long Sup Br Fibular L5-S1 Nml Nml Nml >12ms Reduced Left Flex Dig Long Tibial L5-S2 Nml Nml Nml >12ms Reduced Left Ext Dig Brev Dp Br Fibular L5, S1 Nml Nml Nml >12ms Reduced MTDD
== END 2023-04-27 12:52 | disposition home or self-care (01) ==
LOC: ANHNEURO 12:53
PROVIDERS: PCP Internal Medicine; Visit Provider Internal Medicine
DX: G57.90 Unspecified mononeuropathy of unspecified lower limb (principal); R42 Dizziness and giddiness; H93.12 Tinnitus, left ear; E11.9 Type 2 diabetes mellitus without complications
CPT/HCPCS: 95886; 95911

== ENCOUNTER 2023-05-13 13:54 | Outpatient (CLI) | payer MEDICARE, SELFPAY ==
--- NOTE | ~2023-05-13 | US_ITS ---
EXAMINATION: US venous doppler LE RT DATE: 05/13/2023 14:36 INDICATION: Right calf pain. Personal history of other venous thrombosis. TECHNIQUE: Grayscale ultrasound images without and with compression and Doppler ultrasound images of the right lower extremity veins were obtained. COMPARISON: Ultrasound 07/31/2018 FINDINGS: The visualized portions of right common femoral vein, profunda (deep) femoral vein, femoral vein, pop liteal vein, peroneal veins, posterior tibial veins, and greater saphenous vein outflow are patent. IMPRESSION: 1. No deep venous thrombosis. Reviewed, dictated and finalized at location A. EL DINKEY OPERATOR
== END 2023-05-13 13:55 | disposition home or self-care (01) ==
PROVIDERS: PCP Internal Medicine; Visit Provider Internal Medicine
DX: R25.2 Cramp and spasm (principal); Z86.718 Personal history of other venous thrombosis and embolism
CPT/HCPCS: 93971

== ENCOUNTER 2023-05-17 14:44 | Outpatient (CLI) | payer MEDICARE, SELFPAY ==
--- NOTE | ~2023-05-17 | MR_ITS ---
EXAMINATION: MR lumbar spine wo con DATE: 05/17/2023 15:34 INDICATION: Unspecified mononeuropathy. Low back pain. Numbness of the feet. TECHNIQUE: Magnetic resonance imaging (MRI) of the lumbar spine was performed without intravenous con trast. Sequences included sagittal T2-weighted FSE, sagittal T2-weighted FS FSE, sagittal T1-weighted FSE, and axial T2-weighted FSE. COMPARISON: Lumbar spine MRI 10/21/2021 FINDINGS: There is 16 degrees dextroscoliosis of lumbar spine. There is 3 mm anterolisthesis of L4 on L5. Vertebral body heights are normal. There is moderately decreased disc height at L2-L3, mildly de creased disc height at L3-L4, and severely decreased disc height at L4-L5 and L5-S1. The distal spina l cord signal intensity is normal. The conus medullaris is at L1-L2. The following disc levels are sp ecifically discussed: L1-L2: The disc does not extend beyond the endplate margin. There is no facet joint osteoarthritis. T here is no neural foraminal stenosis. There is no central canal stenosis. L2-L3: The disc is bulging. There is mild right and severe left facet joint osteoarthritis. There is moderate bilateral neural foraminal stenosis. There is mild central canal stenosis. L3-L4: The disc is bulging. There is severe bilateral facet joint osteoarthritis. There is mild right and moderate left neural foraminal stenosis. There is mild central canal stenosis. L4-L5: The disc is bulging and has an annular fissure. There is severe bilateral facet joint osteoart hritis. There is moderate bilateral neural foraminal stenosis. There is mild central canal stenosis. There are changes of left hemilaminotomy. L5-S1: The disc is bulging and has an annular fissure. There is severe bilateral facet joint osteoart hritis. There is moderate bilateral neural foraminal stenosis. There is mild central canal stenosis. IMPRESSION: 1. Severe lumbar spondylosis, stable from 10/21/2021. Reviewed, dictated and finalized at location A. D MANAGER
== END 2023-05-17 14:45 | disposition home or self-care (01) ==
LOC: ANHIMG 14:46
PROVIDERS: PCP Internal Medicine; Visit Provider Internal Medicine
DX: G57.90 Unspecified mononeuropathy of unspecified lower limb (principal); R20.0 Anesthesia of skin; R94.131 Abnormal electromyogram [EMG]; M47.896 Other spondylosis, lumbar region
CPT/HCPCS: 72148

== ENCOUNTER 2023-11-02 12:38 | Outpatient (CLI) | payer MEDICARE, SELFPAY ==
[2023-11-02 16:29] LABS: Influenza A QL RT-PCR Negative (Negative); Influenza B QL RT-PCR Negative (Negative); RSV RNA, RT-PCR Negative (Negative); SARS-CoV-2 RNA PCR Positive (Negative)
== END 2023-11-02 12:39 | disposition home or self-care (01) ==
LOC: ANHGOSHLAB 12:40
PROVIDERS: PCP Internal Medicine; Visit Provider Internal Medicine
DX: R05.9 Cough, unspecified (principal); Z20.822 Contact with and (suspected) exposure to COVID-19
CPT/HCPCS: 87637

== ENCOUNTER 2024-02-17 08:01 | Outpatient (CLI) | payer MEDICARE, SELFPAY ==
--- NOTE | ~2024-02-17 | XR_ITS ---
[id number] 02/17/2024 08:14 Indication: Left knee pain Procedure: 2 views left knee Comparison: No prior studies for comparison. Findings: Mild-moderate tricompartment osteoarthritis. Moderate joint effusion. No fracture, subluxat ion or dislocation. No foreign bodies. Impression: 1: Mild-moderate tricompartment osteoarthritis. Reviewed, dictated and finalized at location B. CONDUCTOR PACKAGE SYMBOL STAMPER Impression: 1: Mild-moderate tricompartment osteoarthritis.
== END 2024-02-17 08:02 | disposition home or self-care (01) ==
PROVIDERS: PCP Internal Medicine; Visit Provider Nurse Practitioner Family
DX: M17.12 Unilateral primary osteoarthritis, left knee (principal)
CPT/HCPCS: 73560

== ENCOUNTER 2024-03-13 10:31 | Outpatient (CLI) | payer MEDICARE, SELFPAY ==
--- NOTE | ~2024-03-13 | XR_ITS ---
EXAMINATION: XR ribs LT 2V w CXR 2V DATE: 03/13/2024 10:54 INDICATION: Left chest pain. Fall. TECHNIQUE: Frontal and lateral views of the chest and 2 views on 3 radiographs of the left ribs were obtained. COMPARISON: chest two views 11/25/21, CT abdomen and pelvis 03/19/2023 FINDINGS: CHEST TWO VIEWS: There is volume loss of right hemithorax. There is a chronic interstitial pattern in right lung and left lower lung zone. No pleural effusion or pneumothorax. The heart size is normal. There are changes of anterior fusion procedure in cervical spine. LEFT RIBS: There is no rib fracture. IMPRESSION: 1. No rib fracture. 2. Chronic interstitial lung disease. Reviewed, dictated and finalized at location A. IBILITY CLERK
== END 2024-03-13 10:32 | disposition home or self-care (01) ==
PROVIDERS: PCP Internal Medicine; Visit Provider Internal Medicine
DX: J84.9 Interstitial pulmonary disease, unspecified (principal); S29.9XXA Unspecified injury of thorax, initial encounter; W19.XXXA Unspecified fall, initial encounter
CPT/HCPCS: 71046; 71100

== ENCOUNTER 2024-05-10 14:49 | Outpatient (CLI) | payer MEDICARE, SELFPAY ==
--- NOTE | ~2024-05-10 | MR_ITS ---
EXAMINATION: MR knee LT wo con DATE: 05/10/2024 15:20 INDICATION: Pain in left knee TECHNIQUE: Magnetic resonance imaging (MRI) of the left knee was performed without intravenous contra st. Sequences included axial PD-weighted FS FSE, coronal PD-weighted FSE and PD-weighted FS FSE, sagi ttal PD-weighted FSE, and sagittal T2-weighted FS FSE. COMPARISON: X-ray left knee 02/17/2024. FINDINGS: Medial compartment: Oblique undersurface tear of the body of the medial meniscus, with slight medial and inferior placeme nt of a flap of meniscal tissue into the medial recess. Complex tear of the posterior horn, with a di splaced flap of meniscal tissue superior to the meniscus. Full-thickness cartilage loss in the medial facet. Mild osteophytosis. Lateral compartment: Apical fraying at the anterior horn and body of the lateral meniscus. 2 mm full-thickness cartilage d efect on the LFC. Mild diffuse cartilage thinning. Mild osteophytosis. Patellofemoral compartment: Mild cartilage thinning over the lateral and medial facets. Full-thickness cartilaginous fissure on t he medial facet. Retinacula intact. Ligaments and tendons: Significant thickening and abnormal signal within the ACL. MCL thickening with abnormal signal in the deep fibers. The PCL and LCL are intact. Remaining flexor and extensor tendons are intact. Fluid: Large volume joint fluid. Moderate-sized Hanson's cyst. Osseous/other: No suspicious focal or diffuse marrow signal. IMPRESSION: Oblique undersurface medial meniscal body and complex posterior medial meniscal horn tears, with disp laced flaps of meniscal tissue. Apical fraying of the anterior horn and body of the lateral meniscus. High-grade partial ACL tear. Partial MCL tear. Large joint effusion. Tricompartmental osteoarthritic changes, with full-thickness cartilage loss in the medial compartment . 2 mm gap in the LFC cartilage. Moderate Hanson's cyst. Reviewed, dictated and finalized at location K. T MAKER IMPRESSION: Oblique undersurface medial meniscal body and complex posterior medial meniscal horn tears, with displaced flaps of meniscal tissue. Apical fraying of the anterior horn and body of the lateral meniscus. High-grade partial ACL tear. Partial MCL tear. Large joint effusion. Tricompartmental osteoarthritic changes, with full-thickness cartilage loss in the medial compartment. 2 mm gap in the LFC cartilage. Moderate Hanson's cyst.
== END 2024-05-10 14:50 | disposition home or self-care (01) ==
LOC: GOSHIMG 14:49
PROVIDERS: PCP Internal Medicine; Visit Provider Internal Medicine
DX: S83.232A Complex tear of medial meniscus, current injury, left knee, initial encounter (principal); S83.512A Sprain of anterior cruciate ligament of left knee, initial encounter; X58.XXXA Exposure to other specified factors, initial encounter; M23.322 Other meniscus derangements, posterior horn of medial meniscus, left knee; M25.462 Effusion, left knee; M17.12 Unilateral primary osteoarthritis, left knee; M94.8X8 Other specified disorders of cartilage, other site; M71.22 Synovial cyst of popliteal space [Baker], left knee
CPT/HCPCS: 73721

== ENCOUNTER 2024-05-16 12:44 | Outpatient (CLI) | payer MEDICARE, SELFPAY ==
--- OUTSIDE RECORDS SUMMARY | 2024-05-16 12:52 | XMS_ITS | Continuity of Care Document ---
Author Organization [facility] Address [address] [place] [address] Exec [facility]ive [facility] [address] [place] [address] Phone Care Team Providers Care Pallet Repairer Name Role Phone Diane Delcid Unavailable Unavailable Procedures Procedure Date Eye Exam, New Patient Refraction Advance Directives Directive Yes / No Effective Date File Name No Information Encounters Encounter Description Practice Location Reason(s) For Visit Diagnoses Date Provider Providers Copied on Encounter Formerly [facility], [address] [place] [address] [address], [place], [place], [id number], [place] tel:[phone] [facility] No Information 0 Farhana Contreras. [address] , [address], [place], [address], [place]. tel:[phone] Family History Family Member Type Diagnosis Age At Onset No Information Payers Payer name Insurance type Covered green party ID Authoriza tion(s) [place] [id number] Social History Type Description Quantity Date Captured Comments Sex Male Smoking Status No Information Chief Complaint And Reason For Visit No Information Reason For Referral Reason For Referral No Information History Of Present Illness Encounter Date Complaint History Of Prese nt Illness No Information Functional Status Date Functional Assessmen t No Information Instructions Date Instruction Additional Infor mation No Information Assessments Type Assessment Date No Information Patient Care Teams Name Effective Dates (start - stop) Status Members No Information
--- OUTSIDE RECORDS SUMMARY | 2024-05-16 12:52 | XMS_ITS | Referral Summary ---
Author Organization [facility] Address [address] [place] [address] Care Team Providers Care Computer Tester Name Role Phone Rich Knight MD Unavailable [phone] Luke Elizabeth MD Primary Care Provider Source Comments [facility],non-owned Affiliates and Associated Physician Practices is amultiple site organization consisting of ambulatory clinics and hospital sitesin [place], [place]. This disclosure is being madepursuant to the Care Everywhere program and may not contain all information available regarding this patient. Last updated 17.[facility] Allergies No known active allergies Medications * Be aware that medications may not be up to date on this document. Alwaysverify current medications with the patient. Medication Sig Dispensed Refills Start Date End Date Status atorvastatin (LIPITOR) 40 MG tablet Take 40 mg by mouth once daily 03/15/2019 Active glimepiride (AMARYL) 4 MG tablet Take 4 mg by mouth once daily 01/18/2019 Active levothyroxine (SYNTHROID) 75 MCG tablet 04/22/2013 Active TRADJENTA 5 MG tablet Take 5 mg by mouth once daily 03/03/2019 Active Manter-3 Fatty Acids (FISH OIL) 1000 MG capsule 11/22/2013 Active Magnesium 100 MG Take by mouth 2 times daily Active hydrALAZINE (APRESOLINE) 25 MG tablet Take 50 mg by mouth 3 times daily 05/29/2019 Active dilTIAZem coated beads 24hr (CARDIZEM LA) 240 MG tablet Take 240 mg by mouth once daily 05/31/2019 Active esomeprazole (NEXIUM) 40 MG capsule Active meloxicam (MOBIC) 15 MG tabletIndications: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 Take 1 tablet by mouth once daily 30 tablet 5 07/19/2019 Active Active Problems Problem Noted Date Diagnosed Date Arthritis of right knee 04/07/2019 Type 2 diabetes mellitus without complication Hyperlipidemia 04/24/2013 Chronic kidney disease, stage 3 (moderate) 04/24 Social History Tobacco Use Types Packs/Day Years Used Date Smoking Tobacco: Former Cigarettes Q uit: 1967 Smokeless Tobacco: Never Alcohol Use Standard Drinks/Week Comments Yes 0 (1 standard drink = 0.6 oz pur e alcohol) glass of wine a night Sex and Gender Information Value Date Recorded Sex Assigned at Not on file Gender Identity Not on file Sexual Orientation Not on file Last Filed Vital Signs Vital Sign Reading Time Taken Comments Blood Pressure 142/70 06/16/2019 7:54 AM [facility] Pulse 69 06/16/2019 7:54 AM [facility] Temperature 36.5 ??C (97.7 ??F) 06/16/2019 7:54 AM [facility] T Respiratory Rate 16 06/16/2019 7:54 AM [facility] Oxygen Saturation 100% 06/16/2019 7:54 AM [facility] Inhaled Oxygen Concentration - - Weight 78.6 kg (173 lb 3.2 oz) 06/14/2019 7:38 A M [facility] Height 167.6 cm (5' 6 ) 06/14/2019 7:38 AM [facility] s tated Body Mass Index 27.96 06/14/2019 7:38 AM [facility] Functional Status Functional Status Response Date of Assess ment Is person deaf or have serious hearing difficult y? No 06/14/2019 Is person blind or have serious difficulty seein g? No 06/14/2019 Does person have serious dif ficulty walking/climbing stairs? No 06/14/2019 Does person have difficulty dressing/bathing? No 06/14/2019 Does person have difficulty doing errands alone? No 06/14/2019 Cognitive Status Response Date of Assessm ent Does person have difficulty concentrating/remembering/making decisions? No 06/14/2019 Plan of Treatment Upcoming Encounters Date Type Department Care Team (Late st Contact Info) Description 05/22/2024 3:40 PM [facility] Office Visit [facility] [address] [address] [place] [address] [address] Medical Devices Implanted Type Area Director Business Intelligence Device Identifier Shelf Expiration Date Model / Serial / Lot Cmnt Bone Djo Srg Cblt 40gm Hvisc Strl Implanted:Qty: 1 on 06/14/2019 by Rich Knight MD at [facility] Right: Knee [employer] 01/13/2030 [id number] / / [id number] Tray Tib 75mm Kn Cocr I Beam Implanted:Qty: 1 on 06/14/2019 by Rich Knight MD at [facility] Right: Knee [employer] 04/15/2029 [id number] / / [id number] Cmpnt Fem Kn Rt Cr Cmnt Prm Vngrd Intlk Implanted:Qty: 1 on 06/14/2019 by Rich Knight MD at [facility] Right: Knee [employer] 02/13/2029 [id number] / / [id number] Cmpnt Ptlr 31mm 1 Pg Wire Ascnt Arcm Kn Implanted:Qty: 1 on 06/14/2019 by Rich Knight MD at [facility] Right: Knee [employer] 04/15/2024 [id number] / / [id number] Brng [id number] Vngrd Arcm Kn Ant Stab Implanted:Qty: 1 on 06/14/2019 by Rich Knight MD at [facility] Right: Knee [employer] 09/14/2023 [id number] / / [id number] Procedures Procedure Name Priority Date/Time Associated Diagnosis Comments BASIC METABOLIC PANEL (CALCIUM TOTAL) AM Draw 06/16/2019 4:36 AM [facility] HEMOGLOBIN A1C STAT 05/25/2019 10:25 AM [facility] Type 2 diabetes mellitus without complication, without long-term current use of insulin Pre-op evaluation from Last 3 Months or Most Recently Relevant to Health Maintenance Results * (ABNORMAL) BASIC METABOLIC PANEL (CALCIUM TOTAL) (06/16/2019 4:36 AM [facility]) Glucose 140(H) 70 - 105 mg/dL 06/16/2019 5:31 AM [facility] Sodium 137 136 - 145 mmol/L 06/16/2019 5:31 AM [facility] Potassium 4.1 3.5 - 5.1 mmol/L 06/16/2019 5:31 AM [facility] Chloride 104 98 - 107 mmol/L 06/16/2019 5:31 AM [facility] CO2 24 23 - 31 mmol/L 06/16/2019 5:31 AM [facility] Calcium 8.9 8.4 - 10.4 mg/dL 06/16/2019 5:31 AM [facility] Anion Gap 9 8 - 16 mmol/L 06/16/2019 5:31 AM [facility] BUN 26(H) 8.4 - 25.7 mg/dL 06/16/2019 5:31 AM [facility] Creatinine 1.55(H) 0.72 - 1.25 mg/dL 06/16/2019 5:31 AM [facility] eGFR by MDRD 44 mL/min/1.7 3m2 06/16/2019 5:31 AM [facility] eGFR by MDRD 53 mL/min/1.7 3m2 06/16/2019 5:31 AM [facility] Blood BLOOD SPECIMEN / Unknown Venipuncture / Unknown 06/16/2019 4:36 AM [facility] 06/16/2019 4:58 AM [facility] Feliz Mancuso DO LAB - CHEMISTRY OR DERABLES [facility] [address] [place] [address] * (ABNORMAL) HEMOGLOBIN A1C (05/25/2019 10:25 AM [facility]) Hemoglobin A1c 6.9(H) 4.2 - 5.6 % 05/25/2019 10:38 AM [facility] Estimated Average Glucose 151 mg/dL 05/25/2019 10:38 AM [facility] Blood BLOOD SPECIMEN / Unknown Venipuncture / Unknown 05/25/2019 10:25 AM [facility] 05/25/2019 10:28 AM [facility] Narrative [facility] - 05/25/2019 10:38 AM [facility] The following cutoff levels are recommended by [place] [employer]. ?? A1c ??> 6.5% : considered as diabetes if two separate tests >6.5% or in an appropriate clinical setting. A1c ??5.7% - 6.4% : considered as prediabetes (suggest increased risk for diabetes and cardiovascular disease) Control target level: ??Should be individualized. ??< 7 ??for general (non- ) , ??< 8% less stringent goal, ??< 6.5 ??more stringent goal. Hemoglobin A1c measurements are used as an aid in the diagnosis of diabetic mellitus, as an aid to identify patients who may be at the risk for developing diabetic mellitus, and for the monitoring long-term blood glucose control in individuals with diabetes mellitus. ??This test should not replace glucose testing for patients with Type 1 diabetes, pediatric patients, or women. ??Falsely low HbA1c results may be observed in patients with clinical conditions that shorten erythrocyte life span or decrease mean erythrocyte age such as the presence of unstable hemoglobin variants, elevated hemoglobin F level ??or other causes of hemolytic anemia . ??HbA1c may not accurately reflect glycemic control when clinical conditions that affect erythrocyte survival are present. ??Severe Iron deficiency anemia may yield falsely high results. ??Hemoglobin A1c assay should not be used to diagnose or monitor diabetes in patients with malignancy, recent blood transfusion, chronic kidney or liver disease. ?? This method may yield falsely low results when hemoglobin (HbF) exceeds 5% in the specimen. Leena Renee TELECOM MANAGER-DIRECTOR DIGITAL CATALOGUE LAB - CHEM ISTRY ORDERABLES [facility] [address] [place] [address] from Last 3 Months or Most Recently Relevant to Health Maintenance Advance Directives * Full Code (Latest Code Status on File) Date Activated Date Inactivated Comments 06/14/2019 1:09 PM 06/16/2019 1:16 PM Care Teams Computer Tester Relationship Specialty Start Date End Date Luke Elizabeth MD [address] [place] [id number] PCP - General 07/14/21 [place] [address] [place] [address] Orthopedic Surgery 03/28/19
--- OUTSIDE RECORDS SUMMARY | 2024-05-16 12:52 | XMS_ITS | Patient Health Summary ---
Author Organization [facility] Material Mix Address [address] [place] [address] Care Team Providers Care Blindstitch Lapel Padder Name Role Phone Rich Knight MD Unavailable Luke Elizabeth MD Primary Care Provider [phone] Note from [facility],non-owned Affiliates and Associated Physician Practices is amultiple site organization consisting of ambulatory clinics and hospital sitesin [place], [place], [place] and [place]. This disclosure is being madepursuant to the Care Everywhere program and may not contain all information available regarding this patient. Last updated 17.[facility] Allergies No known active allergies Medications * Be aware that medications may not be up to date on this document. Alwaysverify current medications with the patient. * atorvastatin (LIPITOR) 40 MG tablet(Started 03/15/2019) Take 40 mg by mouth once daily * glimepiride (AMARYL) 4 MG tablet(Started 01/18/2019) Take 4 mg by mouth once daily * levothyroxine (SYNTHROID) 75 MCG tablet(Started 04/22/2013) * TRADJENTA 5 MG tablet(Started 03/03/2019) Take 5 mg by mouth once daily * [place]-3 Fatty Acids (FISH OIL) 1000 MG capsule(Started 11/22/2013) * Magnesium 100 MG Take by mouth 2 times daily * hydrALAZINE (APRESOLINE) 25 MG tablet(Started 05/29/2019) Take 50 mg by mouth 3 times daily * dilTIAZem coated beads 24hr (CARDIZEM LA) 240 MG tablet(Started 05/31/2019) Take 240 mg by mouth once daily * esomeprazole (NEXIUM) 40 MG capsule * meloxicam (MOBIC) 15 MG tablet(Started 07/19/2019) Take 1 tablet by mouth once daily 5 refills by 07/18/2020 Active Problems Problem Noted Date Diagnosed Date [...] Comments Blood Pressure 142/70 06/16/2019 7:54 AM OTOLARYNGOLOGY SURGEON Pulse 69 06/16/2019 7:54 AM OTOLARYNGOLOGY SURGEON Temperature 36.5 ??C (97.7 ??F) 06/16/2019 7:54 AM CS T Respiratory Rate 16 06/16/2019 7:54 AM OTOLARYNGOLOGY SURGEON Oxygen Saturation 100% 06/16/2019 7:54 AM OTOLARYNGOLOGY SURGEON Inhaled Oxygen Concentration - - Weight 78.6 kg (173 lb 3.2 oz) 06/14/2019 7:38 A M OTOLARYNGOLOGY SURGEON Height 167.6 cm (5' 6 ) 06/14/2019 7:38 AM OTOLARYNGOLOGY SURGEON s tated Body Mass Index 27.96 06/14/2019 7:38 AM OTOLARYNGOLOGY SURGEON Medical Devices Implanted Type Area Marketing Professional Device Identifier Shelf Expiration Date Model / Serial / Lot Cmnt Bone Djo Srg Cblt 40gm Hvisc Strl Implanted:Qty: 1 on 06/14/2019 by Rich Knight MD at [facility] Right: Knee [employer] 01/13/2030 [id number] / / [id number] Tray Tib 75mm Kn Cocr I Beam Implanted:Qty: 1 on 06/14/2019 by Rich Knight MD at [facility] Right: Knee [employer] 04/15/2029 [id number] / / [id number] Cmpnt Fem Kn Rt Cr Cmnt Prm Vngrd Intlk Implanted:Qty: 1 on 06/14/2019 by Rich Knight MD at [facility] Right: Knee [employer] 02/13/2029 [id number] / / [id number] Cmpnt Ptlr 31mm 1 Pg Wire Ascnt Arcm Kn Implanted:Qty: 1 on 06/14/2019 by Rich Knight MD at [facility] Right: Knee [employer] 04/15/2024 [id number] / / [id number] Vngrd Arcm Kn Ant Stab Implanted:Qty: 1 on 06/14/2019 by Rich Knight MD at [facility] Right: Knee [employer] 09/14/2023 [id number] / / [id number] Procedures * GLUCOSE - POINT OF CARE(Performed 06/16/2019) * HGB HCT PANEL(Performed 06/16/2019) * BASIC METABOLIC PANEL (CALCIUM TOTAL)(Performed 06/16/2019) * GLUCOSE - POINT OF CARE(Performed 06/15/2019) * GLUCOSE - POINT OF CARE(Performed 06/15/2019) * BASIC METABOLIC PANEL (CALCIUM TOTAL)(Performed 06/15/2019) * HGB HCT PANEL(Performed 06/15/2019) * GLUCOSE - POINT OF CARE(Performed 06/14/2019) * GLUCOSE - POINT OF CARE(Performed 06/14/2019) * GLUCOSE - POINT OF CARE(Performed 06/14/2019) * GLUCOSE - POINT OF CARE(Performed 06/14/2019) * GLUCOSE - POINT OF CARE(Performed 06/14/2019) * ARTHROPLASTY TOTAL KNEE(Performed 06/14/2019) * GLUCOSE - POINT OF CARE(Performed 06/14/2019) * COMPREHENSIVE METABOLIC PANEL(Performed 05/25/2019) Performed for Pre-op evaluation * CBC W AUTO DIFFERENTIAL(Performed 05/25/2019) Performed for Pre-op evaluation * HEMOGLOBIN A1C(Performed 05/25/2019) Performed for Type 2 diabetes mellitus without complication, without long-term current use of insulin , Pre-op evaluation * CULTURE ANAEROBE(Performed 12/04/2013) * CULTURE AEROBIC + GRAM STAIN(Performed 12/04/2013) * CULTURE AEROBIC(Performed 12/04/2013) * GRAM STAIN SMEAR(Performed 12/04/2013) * DERMATOPATHOLOGY(Performed 02/20/2013) Results * (ABNORMAL) GLUCOSE - POINT OF CARE (06/16/2019 8:04 AM OTOLARYNGOLOGY SURGEON) Only the most recent of9 resultswithin the time period is included. Glucose WB/POC 166(H) 70 - 106 mg/dL 06/16/2019 8:21 AM OTOLARYNGOLOGY SURGEON [facility] Specimen Type Arterial/C apillary 06/16/2019 8:21 AM OTOLARYNGOLOGY SURGEON [facility] Blood BLOOD SPECIMEN / Unknown 06/16/2019 8:04 AM OTOLARYNGOLOGY SURGEON 06/16/2019 8:21 AM OTOLARYNGOLOGY SURGEON Rich Knight MD LAB - POINT OF CARE ORDERABLES Performing Organization Address [facility] de Phone Number [facility] [id number] [place] [address] * (ABNORMAL) HGB HCT PANEL (06/16/2019 4:45 AM OTOLARYNGOLOGY SURGEON) Only the most recent of2 resultswithin the time period is included. Hemoglobin 11.4(L) 12.0 - 17.6 gm/dL 06/16/2019 5:16 AM OTOLARYNGOLOGY SURGEON [facility] Hematocrit 36.2 35.2 - 51.7 % 06/16/2019 5:16 AM OTOLARYNGOLOGY SURGEON [facility] Blood BLOOD SPECIMEN / Unknown Venipuncture / Unknown 06/16/2019 4:45 AM OTOLARYNGOLOGY SURGEON 06/16/2019 4:59 AM OTOLARYNGOLOGY SURGEON Rich Knight MD LAB - HEMATOLOGY ORD ERABLES Performing Organization Address [facility] de Phone Number [facility] [address] [place] [address] * (ABNORMAL) BASIC METABOLIC PANEL (CALCIUM TOTAL) (06/16/2019 4:36 AM OTOLARYNGOLOGY SURGEON) Only the most recent of2 resultswithin the time period is included. Glucose 140(H) 70 - 105 mg/dL 06/16/2019 5:31 AM OTOLARYNGOLOGY SURGEON [facility] Sodium 137 136 - 145 mmol/L 06/16/2019 5:31 AM [facility] Potassium 4.1 3.5 - 5.1 mmol/L 06/16/2019 5:31 AM [facility] Chloride 104 98 - 107 mmol/L 06/16/2019 5:31 AM [facility] CO2 24 23 - 31 mmol/L 06/16/2019 5:31 AM [facility] Calcium 8.9 8.4 - 10.4 mg/dL 06/16/2019 5:31 AM [facility] Anion Gap 9 8 - 16 mmol/L 06/16/2019 5:31 AM [facility] BUN 26(H) 8.4 - 25.7 mg/dL 06/16/2019 5:31 AM [facility] Creatinine 1.55(H) 0.72 - 1.25 mg/dL 06/16/2019 5:31 AM [facility] eGFR by MDRD 44 mL/min/1.7 3m2 06/16/2019 5:31 AM [facility] eGFR by MDRD 53 mL/min/1.7 3m2 06/16/2019 5:31 AM [facility] Blood BLOOD SPECIMEN / Unknown Venipuncture / Unknown 06/16/2019 4:36 AM OTOLARYNGOLOGY SURGEON 06/16/2019 4:58 AM OTOLARYNGOLOGY SURGEON Feliz Mancuso DO LAB - CHEMISTRY OR DERABLES [facility] [address] [place] [address] * (ABNORMAL) HEMOGLOBIN A1C (05/25/2019 10:25 AM [facility]) Hemoglobin A1c 6.9(H) 4.2 - 5.6 % 05/25/2019 10:38 AM [facility] Estimated Average Glucose 151 mg/dL 05/25/2019 10:38 AM [facility] Blood BLOOD SPECIMEN / Unknown Venipuncture / Unknown 05/25/2019 10:25 AM OTOLARYNGOLOGY SURGEON 05/25/2019 10:28 AM OTOLARYNGOLOGY SURGEON Narrative [facility] - 05/25/2019 10:38 AM OTOLARYNGOLOGY SURGEON The following cutoff levels are recommended by [place] [employer]. ?? A1c ??> 6.5% : [...] exceeds 5% in the specimen. Leena Renee TRIM LINE WORKER-RFP WRITER LAB - CHEM ISTRY ORDERABLES [facility] [address] [place] [address] * (ABNORMAL) CBC W AUTO DIFFERENTIAL (05/25/2019 10:25 AM OTOLARYNGOLOGY SURGEON) [facility] WBC 8.8 4.4 - 10.7 x10E9/L 05/25/2019 10:44 AM OTOLARYNGOLOGY SURGEON [facility] WBC Corrected 05/25/2019 10:44 AM OTOLARYNGOLOGY SURGEON [facility] RBC 4.54 3.80 - 5.40 x10E12/L 05/25/2019 10:44 AM OTOLARYNGOLOGY SURGEON [facility] Hemoglobin 13.9 12.0 - 17.6 gm/dL 05/25/2019 10:44 AM OTOLARYNGOLOGY SURGEON [facility] Hematocrit 43.3 35.2 - 51.7 % 05/25/2019 10:44 AM [facility] MCV 95.4 80.7 - 98.3 fl 05/25/2019 10:44 AM [facility] MCH 30.6 26.7 - 34.0 pg 05/25/2019 10:44 AM [facility] MCHC 32.1 30.8 - 35.9 gm/dL 05/25/2019 10:44 AM [facility] Platelet Count 170 153 - 416 x10E9/L 05/25/2019 10:44 AM [facility] RDW-CV 14.0 12.1 - 14.9 % 05/25/2019 10:44 AM [facility] MPV 10.4 9.4 - 12.9 fl 05/25/2019 10:44 AM [facility] Neutrophils % 77.3(H) 44.0 - 73.0 % 05/25/2019 10:44 AM [facility] Lymphocytes % 10.4(L) 20.0 - 43.0 % 05/25/2019 10:44 AM [facility] Monocytes % 10.0 5.0 - 13.0 % 05/25/2019 10:44 AM [facility] Eosinophils % 1.3 0.0 - 6.0 % 05/25/2019 10:44 AM [facility] Basophils % 0.7 0.0 - 2.0 % 05/25/2019 10:44 AM [facility] Immature Granulocytes 0.3 0 - 1 % 05/25/2019 10:44 AM [facility] Neutrophil Absolute 6.80 2.01 - 7.14 x10E9/L 05/25/2019 10:44 AM [facility] Lymphocytes Absolute 0.91(L) 1.07 - 3.94 x10E9/L 05/25/2019 10:44 AM [facility] Monocytes Absolute 0.88 0.26 - 1.07 x10E9/L 05/25/2019 10:44 AM [facility] Eosinophils Absolute 0.11 0 - 0.47 x10E9/L 05/25/2019 10:44 AM [facility] Basophils Absolute 0.06 0 - 0.08 x10E9/L 05/25/2019 10:44 AM [facility] Immature Granulocytes Absolute 0.03 0.00 - 0.06 x10E9/L 05/25/2019 10:44 AM [facility] nRBC Auto 0 /100 WBC 05/25/2019 10:44 AM [facility] Blood BLOOD SPECIMEN / Unknown Venipuncture / Unknown 05/25/2019 10:25 AM OTOLARYNGOLOGY SURGEON 05/25/2019 10:28 AM OTOLARYNGOLOGY SURGEON Leena C Thelma TRIM LINE WORKER-RFP WRITER LAB - TEMO TOLOGY ORDERABLES [facility] [address] [place] [address] * (ABNORMAL) COMPREHENSIVE METABOLIC PANEL (05/25/2019 10:25 AM [facility]) Glucose 141(H) 70 - 105 mg/dL 05/25/2019 10:45 AM [facility] Sodium 138 136 - 145 mmol/L 05/25/2019 10:45 AM [facility] Potassium 4.3 3.5 - 5.1 mmol/L 05/25/2019 10:45 AM [facility] Chloride 103 98 - 107 mmol/L 05/25/2019 10:45 AM [facility] CO2 20(L) 23 - 31 mmol/L 05/25/2019 10:45 AM [facility] Calcium 9.6 8.4 - 10.4 mg/dL 05/25/2019 10:45 AM [facility] Anion Gap 15 8 - 16 mmol/L 05/25/2019 10:45 AM [facility] BUN 27(H) 8.4 - 25.7 mg/dL 05/25/2019 10:45 AM [facility] Creatinine 1.66(H) 0.72 - 1.25 mg/dL 05/25/2019 10:45 AM [facility] Alkaline Phosphatase 76 40 - 150 U/L 05/25/2019 10:45 AM [facility] ALT 35 0 - 61 U/L 05/25/2019 10:45 AM [facility] AST 31 5 - 34 U/L 05/25/2019 10:45 AM [facility] Protein Total 8.0 6.4 - 8.3 gm/dL 05/25/2019 10:45 AM [facility] Albumin 4.4 3.2 - 4.6 gm/dL 05/25/2019 10:45 AM OTOLARYNGOLOGY SURGEON [facility] Bilirubin Total 1.1 0.2 - 1.2 mg/dL 05/25/2019 10:45 AM OTOLARYNGOLOGY SURGEON [facility] eGFR by MDRD 41 mL/min/1.7 3m2 05/25/2019 10:45 AM OTOLARYNGOLOGY SURGEON [facility] eGFR by MDRD 49 mL/min/1.7 3m2 05/25/2019 10:45 AM OTOLARYNGOLOGY SURGEON [facility] Blood BLOOD SPECIMEN / Unknown Venipuncture / Unknown 05/25/2019 10:25 AM OTOLARYNGOLOGY SURGEON 05/25/2019 10:28 AM OTOLARYNGOLOGY SURGEON Leena Renee APRN-RFP WRITER LAB - CHEM ISTRY ORDERABLES Performing Organization Address [facility]/ZIP Co de Phone Number [facility] [address] [place] [address] * (ABNORMAL) CULTURE AEROBIC + GRAM STAIN (12/04/2013 1:55 PM CDT) Culture Aerobic COAG NEG STAPH SPECIES(A) [facility] Comment:Light Growth Coagula se Neg Staph Species Fluid specimen (specimen) 12/04/2013 1:55 PM CDT 12/04/2013 9:59 PM CDT Narrative [facility] - 12/07/2013 12:33 PM CDT LamSpecbandar#[id number] Lam Loc/Rm/Bed: OP SURG// GI LAB Source: LEFT CHEEK INFECTED FOREIGN BODY Organism Antibiotic Method Susceptibility Coagulase negative Staphylococcus Clindamycin SUSCEPTIBILITY *: Resistant Coagulase negative Staphylococcus Doxycycline SUSCEPTIBILITY <=0.5: Sensitive Coagulase negative Staphylococcus Erythromycin SUSCEPTIBILITY >=8: Resistant Coagulase negative Staphylococcus Gentamicin SUSCEPTIBILITY <=0.5: Sensitive Coagulase negative Staphylococcus Levofloxacin SUSCEPTIBILITY 4: Resistant Coagulase negative Staphylococcus Oxacillin SUSCEPTIBILITY >=4: Resistant Coagulase negative Staphylococcus Trimethoprim-sulfamethox azole SUSCEPTIBILITY <=10: Sensitive Coagulase negative Staphylococcus Vancomycin SUSCEPTIBILITY 2: Sensitive Historical Provider MD LAB - MICROBIOLOG Y ORDERABLES [facility] [address] [place] [address] * CULTURE AEROBIC (12/04/2013 1:55 PM CDT) Fluid specimen (specimen) 12/04/2013 1:55 PM CDT Narrative [facility] - 12/07/2013 12:33 PM CDT AndersonBobimen#[id number] Lam Loc/Rm/Bed: OP SURG// GI LAB Source: LEFT CHEEK INFECTED FOREIGN BODY The following orders were created for panel order CULTURE, AEROBIC & GRAM STAIN. Procedure ? Abnormality ? Status ? --------- ? ------ ? CULTURE, AEROBIC[[id number]] ?Abnormal ?Final result ? STAIN, GRAM (PERFORM)[[id number]] ? Final result ? Please view results for these tests on the individual orders. Historical Provider MD LAB - MICROBIOLOG Y ORDERABLES Performing Organization Address [facility]/State/[facility] Co de Phone Number [place] [phone] [place] [address], [facility] * GRAM STAIN SMEAR (12/04/2013 1:55 PM CDT) Gram Stain Few Polymorphonuclear Cells [facility] Gram Stain No Organism Seen [facility] Fluid specimen (specimen) 12/04/2013 1:55 PM CDT 12/04/2013 9:59 PM CDT Narrative [facility] - 12/05/2013 12:32 AM CDT AndersonSpecimen#[id number] Lam Loc/Rm/Bed: OP SURG// GI LAB Source: LEFT CHEEK INFECTED FOREIGN BODY Gram Stains are routinely screened for the presence of Polymorphonuclear Cells. Historical Provider MD LAB - MICROBIOLOG Y ORDERABLES [address] [phone] * (ABNORMAL) CULTURE ANAEROBE (12/04/2013 1:55 PM CDT) Culture Anaerobic CLOSTRIDIUM CLOSTRIDIOFORM E(A) [facility] Comment:Very Light Growth Cl ostridium Clostridioforme Culture Anaerobic ACTINOMYCES MEYERI(A) [facility] Comment:Very Light Growth Ac tinomyces Meyeri Culture Anaerobic PREVOTELLA/POR PHYROMONAS SP.(A) [facility] Comment:Very Light Growth Pr evotell/Porphyromonas Species Fluid specimen (specimen) 12/04/2013 1:55 PM CDT 12/04/2013 10:00 PM CDT Narrative [facility] - 12/15/2013 4:11 PM CDT AndersonSpecimen#[id number] [place] Loc//Bed: OP SURG// Source: LEFT CHEEK INFECTED FOREIGN BODY AEROBIC GROWTH COMPATIBLE WITH ROUTINE CULTURE. Organism Antibiotic Method Susceptibility Enterocloster (formerly Clostridium clostridioforme) clostridioformis Beta-Lactamase SUSCEPTIBILITY Sensitive Comment: Resistant Result: ??Organism is Beta-Lactamase Positive. Sensitive Result: ??Organism is Beta-Lactamase Negative. Beta-Lactamase positive results predict resistance to Penicillin and Ampicillin. Anaerobes can be resistant to Beta-Lactam Antimicr obial agents by mechanisms other than Beta-Lactamase production, so a negative result does not rule out resistance. Prevotella/porphyromonas sp. 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 GROSS DESCRIPTION: Received is one formalin filled container labeled with the patient's name and designated left ear. The specimen consists of a shave biopsy measuring 6x5x3 mm. Jar 0. MICROSCOPIC DESCRIPTION: Sections reveal parakeratosis, acanthosis and keratinocyte dysmaturation which is most prominent in the lower epidermis. ??Focal nests are present in the dermis. This lesion is not present at the sampled margin of the specimen. Electronically signed out by Susy Palacios M.D. 02/22/2013 1:08:01PM [facility] Comment: Performed at: Dermatopathology Laboratory [facility] Department of Dermatology [address] [place] [address], [address] [place] [address] Phone number: [phone] Toll Free: [phone] FAX: [phone] 02/20/2013 02/21/2013 Miguel Perez MD LAB - PATHOLOGY/CYTO LOGY ORDERABLES [facility] [address] [place] [address]. [address] Floor Lab [address] [phone] Care Teams Blindstitch Lapel Padder Relationship Specialty Start Date End Date Luke Elizabeth MD [address] [facility] [address] [place] [phone] PCP - General 07/14/21 [place] [address] [address] Orthopedic Surgery 03/28/19
--- OUTSIDE RECORDS SUMMARY | 2024-05-16 12:52 | XMS_ITS | Clinical Summary ---
Author Organization [address] Address [address] [place] [address] Care Team Providers Care Seismograph Observer Name Role Phone Luke Huerta MD Primary Care Provider [phone] Allergies No known active allergies Medications atorvastatin (LIPITOR) 20 mg tablet 0 02/21/2018 Active glimepiride (AMARYL) 2 mg tabletIndication s:type 2 diabetes mellitus 0 05/19/2018 Active levothyroxine (SYNTHROID, LEVOTHROID) 75 mcg tablet 0 02/25/2018 Active aspirin 81 mg chewable tablet 04/24/2013 Act lenny cholecalciferol (VITAMIN D-3) 5,000 unit capsule Take by mouth daily 03/09/2017 Active CARTIA XT 180 mg 24 hr capsule 1 02/22/2019 Activ e linaGLIPtin (TRADJENTA) 5 mg tabletIndication s:type 2 diabetes mellitus 5 mg Active Active Problems Problem Noted Date Diagnosed Date Primary osteoarthritis of right knee 02/28/2019 Overview (02/28/2019): Added automatically from request for surgery [id number] Complex tear of medial menis cus of right knee as current injury 09/26/2018 Overview (09/26/2018): Added automatically from request for surgery [id number] Encounters Date Type Department Care Team Description 03/07/2024 1:00 PM MOTHER TESTER Ancillary Procedure [facility] Cardiology [address] [place] [address] Abnormal EKG from Last 3 Months Surgical History Surgery Date Site/Laterality Comments SPINAL FUSION Cervical Medical History Medical History Date Comments Hypertension Clotting disorder (CMS/HCC) (HCC) Hypercholesteremia Diabetes mellitus (HCC) Type 2 diabetes mellitus (HCC) Stroke (HCC) TIA Family History Medical History Relation Name Comments Heart disease Brother Heart disease Father Heart disease Mother Relation Name Status Comments Brother Father Mother Social History Tobacco Use Types Packs/Day Years Used Date Smoking Tobacco: Former Smokeless Tobacco: Never Alcohol Use Standard Drinks/Week Comments Yes 0 (1 standard drink = 0.6 oz pur e alcohol) Sex and Gender Information Value Date Recorded Sex Assigned at Not on file Legal Sex Male 10:13 AM MOTHER TESTER Gender Identity Not on file Sexual Orientation Not on file Obstetrics History Last Filed Vital Signs Vital Sign Reading Time Taken Comments Blood Pressure 145/89 02/24/2019 11:25 AM MOTHER TESTER Pulse 79 02/24/2019 11:25 AM MOTHER TESTER Temperature 36.8 ??C (98.3 ??F) 10/04/2018 9:34 AM CD T Respiratory Rate 16 10/04/2018 9:34 AM CDT Oxygen Saturation 96% 10/04/2018 9:14 AM CDT Inhaled Oxygen Concentration - - Weight 76.2 kg (167 lb 15.9 oz) 02/24/2019 2:16 PM MOTHER TESTER Height 170.2 cm (5' 7.01 ) 02/24/2019 2:16 PM CS T Body Mass Index 26.3 02/24/2019 2:16 PM MOTHER TESTER Plan of Treatment Not on file Procedures Procedure Name Priority Date/Time Associated Diagnosis Comments TRANSTHORACIC ECHO (TTE) COMPLETE W DOPPLER/CF W CONTRAST Routine 03/07/2024 1:49 PM MOTHER TESTER Abnormal EKG from Last 3 Months Results * TRANSTHORACIC ECHO (TTE) COMPLETE W DOPPLER/CF W CONTRAST (03/07/2024 1:49 PM MOTHER TESTER) Anatomical Region Laterality Modality Ultrasound 03/07/2024 1:36 PM MOTHER TESTER Narrative 03/07/2024 3:55 PM MOTHER TESTER [facility] Cardiology [address], [place] [address] [address], [address], [place] [address] P:[phone] P:[phone] Echocardiographic Report Patient Name: BERNADINE LENNON D : 1945 Study Date: 03/07/2024 1:36:54 PM Gender: M Tech: Location: [place] Ref Provider: LUKE HUERTA Height(Cm): 170 BSA: 1.89 Weight(Kg): 75.7 Heart Rate: 101 BP: 125 / 72 Quality: Good Order Provider: LUKE HUERTA PROCEDURES: Echocardiographic Report: Transthoracic echocardiogram with complete 2D, M-Mode, color Doppler examination and Definity contrast. INDICATIONS: R94.31 Abnormal electrocardiogram (ECG) (EKG). Measurements: 2D/M Mode ?Doppler Measurement ?Value ?Normal Range ?Measurement ?Value ?Normal Range LVIDd 2D ? 3.93 ? [ 4.20 - 5.80 ] cm ?DIANELYS Vmax ? 2.56 ? [ 2.00 - 4.00 ] cm2 LVIDs 2D ? 2.69 ? [ 2.50 - 4.00 ] cm ?AV Mean PG ? 5 ?mmHg LVPWd 2D ? 1.31 ? [ 0.60 - 1.00 ] cm ?AV Peak Luis Armando ?1.56 ? [ 1.00 - 1.70 ] m/s IVSd 2D ?1.65 ? [ 0.60 - 1.00 ] cm ?AV Peak PG ? 10 ? mmHg LA Volume Index ?22 ? [ 16 - 34 ] cc/m2 ? AV VTI ? 22.57 ?cm ___ ?___ ?___ ? LVOT Diam ?2.13 ? [ 1.70 - 2.10 ] cm ___ ?___ ?___ ? LVOT Peak Luis Armando ?1.12 ? [ 0.70 - 1.10 ] m/s ___ ?___ ?___ ? LVOT VTI ? 17.51 ?cm ___ ?___ ?___ ? MV E Peak Luis Armando ?0.68 ? [ 0.60 - 1.30 ] m/s ___ ?___ ?___ ? MV A Peak Luis Armando ?1.13 ? [ 1.00 - 1.20 ] m/s ___ ?___ ?___ ? MV Decel Time ?135 ?[ 104 - 258 ] msec ___ ?___ ?___ ? Lateral E` ? 0.05 ? [ 0.10 - 0.15 ] m/s ___ ?___ ?___ ? E` ? 0.04 ? m/s E/E` ? 14 Measurement ?Value ?Normal Range ?Measurement ?Value ?Normal Range 2D/M Mode ?Doppler - FINDINGS: Interpretation Site: Exam was interpreted at [facility]. Left Ventricle: Normal left ventricular size. Definity contrast agent used to visually enhance endocardial wall motion and contractility. Lot Number: [id number]. Moderate concentric left ventricular hypertrophy. Normal global left ventricular systolic function. Impaired diastolic relaxation Grade I. Ejection fraction is visually estimated at 60 %. Ejection fraction is measured at 55 %. These segments of the LV are hypokinetic: Inferolateral segment. Right Ventricle: Normal right ventricular size. Normal right ventricular systolic function. Left Atrium: The left atrium is normal in size. Right Atrium: The right atrium is normal in size. Atrial Septum: Normal atrial septum. Mitral Valve: Normal appearance of the mitral valve. Mild mitral valve regurgitation. There is no hemodynamically significant mitral stenosis by Doppler. Aortic Valve: No evidence of hemodynamically significant aortic stenosis by Doppler. Aortic cusps appear mildly calcified. Trileaflet aortic valve. Trace aortic valve regurgitation. Tricuspid Valve: Normal appearance of the tricuspid valve. Normal right ventricular systolic pressure. Estimated peak RVSP is 25-30 mmHg. Mild tricuspid regurgitation. Pulmonic Valve: Normal appearance of the pulmonic valve. No pulmonic stenosis. Trivial regurgitation in the pulmonic valve. Pericardium: Trivial pericardial effusion. There is an anterior echo free space consistent with epicardial fat pad. Aorta: Sinus of Valsalva is mildly dilated. Sinus of Valsalva 3.7 cm. IVC: Normal size and normal respiratory collapse consistent with normal right atrial pressure (<5 mmHg). CONCLUSIONS: Normal left ventricular size. Definity contrast agent used to visually enhance endocardial wall motion and contractility. Lot Number: [id number]. Moderate concentric left ventricular hypertrophy. Normal global left ventricular systolic function. Impaired diastolic relaxation Grade I. Ejection fraction is visually estimated at 60 %. Ejection fraction is measured at 55 %. These segments of the LV are hypokinetic: Inferolateral segment. Mild mitral valve regurgitation. Aortic cusps appear mildly calcified. Normal right ventricular systolic pressure. Mild tricuspid regurgitation. Trivial pericardial effusion. There is an anterior echo free space consistent with epicardial fat pad. Sinus of Valsalva is mildly dilated. Sinus of Valsalva 3.7 cm. Normal sinus rhythm. Electronically Signed By: Juan Pablo George MD 2024-03-07 15:55:08 MOTHER TESTER Procedure Note Juan Pablo George MD - 03/07/2024 [facility] Cardiology [address] [facility] [address], [place] [address] [address] [facility] [address], [place] [address] P:[phone] P:[phone] Echocardiographic Report Patient Name: BERNADINE LENNON D : 1945 Study Date: 03/07/2024 1:36:54 PM Gender: M Tech: Location: [place] Ref Provider: LUKE HUERTA Height(Cm): 170 BSA: 1.89 Weight(Kg): 75.7 Heart Rate: 101 BP: 125 / 72 Quality: Good Order Provider: LUKE HUERTA PROCEDURES: Echocardiographic Report: Transthoracic echocardiogram with complete 2D, M-Mode, color Dopplerexamination and Definity contrast. INDICATIONS: R94.31 Abnormal electrocardiogram (ECG) (EKG). Measurements: 2D/M ModeDoppler Measurement Value Normal Range Measurement ValueNormal Range LVIDd 2D 3.93 [ 4.20 - 5.80 ] cm DIANELYS Vmax 2.56[ 2.00 - 4.00 ] cm2 LVIDs 2D 2.69 [ 2.50 - 4.00 ] cm AV Mean PG 5mmHg LVPWd 2D 1.31 [ 0.60 - 1.00 ] cm AV Peak Luis Armando 1.56[ 1.00 - 1.70 ] m/s IVSd 2D 1.65 [ 0.60 - 1.00 ] cm AV Peak PG 10mmHg LA Volume Index 22 [ 16 - 34 ] cc/m2 AV VTI 22.57cm ___ ___ ___ LVOT Diam 2.13[ 1.70 - 2.10 ] cm ___ ___ ___ LVOT Peak Luis Armando 1.12[ 0.70 - 1.10 ] m/s ___ ___ ___ LVOT VTI 17.51cm ___ ___ ___ MV E Peak Luis Armando 0.68[ 0.60 - 1.30 ] m/s ___ ___ ___ MV A Peak Luis Armando 1.13[ 1.00 - 1.20 ] m/s ___ ___ ___ MV Decel Time 135[ 104 - 258 ] msec ___ ___ ___ Lateral E` 0.05[ 0.10 - 0.15 ] m/s ___ ___ ___ E` 0.04m/s E/E` 14 Measurement Value Normal Range Measurement ValueNormal Range 2D/M ModeDoppler - FINDINGS: Interpretation Site: Exam was interpreted at [facility]. Left Ventricle: Normal left ventricular size. Definity contrast agent used to visuallyenhance endocardial wall motion and contractility. Lot Number: [id number]. Moderateconcentric left ventricular hypertrophy. Normal global left ventricular systolic function.Impaired diastolic relaxation Grade I. Ejection fraction is visually estimated at60 %. Ejection fraction is measured at 55 %. These segments of the LV are hypokinetic:Inferolateral segment. Right Ventricle: Normal right ventricular size. Normal right ventricular systolicfunction. Left Atrium: The left atrium is normal in size. Right Atrium: The right atrium is normal in size. Atrial Septum: Normal atrial septum. Mitral Valve: Normal appearance of the mitral valve. Mild mitral valve regurgitation.There is no hemodynamically significant mitral stenosis by Doppler. Aortic Valve: No evidence of hemodynamically significant aortic stenosis by Doppler.Aortic cusps appear mildly calcified. Trileaflet aortic valve. Trace aortic valveregurgitation. Tricuspid Valve: Normal appearance of the tricuspid valve. Normal right ventricularsystolic pressure. Estimated peak RVSP is 25-30 mmHg. Mild tricuspid regurgitation. Pulmonic Valve: Normal appearance of the pulmonic valve. No pulmonic stenosis. Trivialregurgitation in the pulmonic valve. Pericardium: Trivial pericardial effusion. There is an anterior echo free spaceconsistent with epicardial fat pad. Aorta: Sinus of Valsalva is mildly dilated. Sinus of Valsalva 3.7 cm. IVC: Normal size and normal respiratory collapse consistent with normal rightatrial pressure (<5 mmHg). CONCLUSIONS: Normal left ventricular size. Definity contrast agent used to visuallyenhance endocardial wall motion and contractility. Lot Number: [id number]. Moderateconcentric left ventricular hypertrophy. Normal global left ventricular systolic function.Impaired diastolic relaxation Grade I. Ejection fraction is visually estimated at60 %. Ejection fraction is measured at 55 %. These segments of the LV are hypokinetic:Inferolateral segment. Mild mitral valve regurgitation. Aortic cusps appear mildly calcified. Normal right ventricular systolic pressure. Mild tricuspidregurgitation. Trivial pericardial effusion. There is an anterior echo free spaceconsistent with epicardial fat pad. Sinus of Valsalva is mildly dilated. Sinus of Valsalva 3.7 cm. Normal sinus rhythm. Electronically Signed By: Juan Pablo George MD 2024-03-07 15:55:08 MOTHER TESTER Luke Huerta MD CV ECHO PROCEDURES Final Resu lt from Last 3 Months Insurance MEDICARE MEDICARE [facility] MEDICARE SUPPLEMENT Care Teams Seismograph Observer Relationship Specialty Start Date End Date Luke Huerta MD [address] [place] [address] PCP - General Internal Medicine 11/25/18
--- OUTSIDE RECORDS SUMMARY | 2024-05-16 12:52 | XMS_ITS | Referral Summary ---
Author Organization [address] [facility] [place] Address [address] [place] [address] Care Team Providers Care Special Projects Coordinator Name Role Phone Luke Huerta MD Primary Care Provider [phone] Encounters Date Type Department Care Team Description 03/07/2024 1:00 PM ACOUSTICAL MATERIAL WORKER Ancillary Procedure [facility] Cardiology [address] [place] [address] Abnormal EKG from Last 3 Months Allergies No known active allergies Medications atorvastatin [...] (02/28/2019): Added automatically from request for surgery [id number] Complex tear of medial menis cus of right knee as current injury 09/26/2018 Overview (09/26/2018): Added automatically from request for surgery [id number] Social History Tobacco Use Types Packs/Day Years Used Date Smoking Tobacco: Former Smokeless Tobacco: Never Alcohol Use Standard Drinks/Week Comments Yes 0 (1 standard drink = 0.6 oz pur e alcohol) Sex and Gender Information Value Date Recorded Sex Assigned at Not on file Legal Sex Male 10:13 AM ACOUSTICAL MATERIAL WORKER Gender Identity Not on file Sexual Orientation Not on file Last Filed Vital Signs Vital Sign Reading Time Taken Comments Blood Pressure 145/89 02/24/2019 11:25 AM ACOUSTICAL MATERIAL WORKER Pulse 79 02/24/2019 11:25 AM ACOUSTICAL MATERIAL WORKER Temperature 36.8 ??C (98.3 ??F) 10/04/2018 9:34 AM CD T Respiratory Rate 16 10/04/2018 9:34 AM CDT Oxygen Saturation 96% 10/04/2018 9:14 AM CDT Inhaled Oxygen Concentration - - Weight 76.2 kg (167 lb 15.9 oz) 02/24/2019 2:16 PM ACOUSTICAL MATERIAL WORKER Height 170.2 cm (5' 7.01 ) 02/24/2019 2:16 PM CS T Body Mass Index 26.3 02/24/2019 2:16 PM ACOUSTICAL MATERIAL WORKER Plan of Treatment Not on file Procedures Procedure Name Priority Date/Time Associated Diagnosis Comments TRANSTHORACIC ECHO (TTE) COMPLETE W DOPPLER/CF W CONTRAST Routine 03/07/2024 1:49 PM ACOUSTICAL MATERIAL WORKER Abnormal EKG from Last 3 Months Results * TRANSTHORACIC ECHO (TTE) COMPLETE W DOPPLER/CF W CONTRAST (03/07/2024 1:49 PM ACOUSTICAL MATERIAL WORKER) Anatomical Region Laterality Modality Ultrasound 03/07/2024 1:36 PM ACOUSTICAL MATERIAL WORKER Narrative 03/07/2024 3:55 PM ACOUSTICAL MATERIAL WORKER [facility] Cardiology [address], [place] [address] [facility] [address], [place] [address] P:[phone] P:[phone] Echocardiographic Report Patient Name: BERNADINE LENNON D : 1945 Study Date: 03/07/2024 1:36:54 PM Gender: M Tech: ZAYRA Location: [place] Ref Provider: LUKE HUERTA Height(Cm): 170 BSA: [...] FINDINGS: Interpretation Site: Exam was interpreted at [facility]. Left Ventricle: Normal left ventricular size. [...] By: Juan Pablo George MD 2024-03-07 15:55:08 ACOUSTICAL MATERIAL WORKER Procedure Note Juan Pablo George MD - 03/07/2024 [facility] Cardiology [address] [facility] [address] [address] [facility] [id number] [address] P:[phone] P:[phone] Echocardiographic Report Patient Name: BERNADINE LENNON D : 1945 Study Date: 03/07/2024 1:36:54 PM Gender: M Tech: Location: [facility] Provider: LUKE HUERTA Height(Cm): 170 BSA: 1.89 [...] FINDINGS: Interpretation Site: Exam was interpreted at [facility]. Left Ventricle: Normal left ventricular size. [...] By: Juan Pablo George MD 2024-03-07 15:55:08 ACOUSTICAL MATERIAL WORKER Luke Huerta MD CV ECHO PROCEDURES Final Resu lt from Last 3 Months Insurance MEDICARE MEDICARE [facility] MEDICARE SUPPLEMENT Care Teams Special Projects Coordinator Relationship Specialty Start Date End Date Luke Huerta MD [address] [place] [address] PCP - General Internal Medicine 11/25/18
--- OUTSIDE RECORDS SUMMARY | 2024-05-16 12:52 | XMS_ITS | Clinical Summary ---
Author Organization [facility] Address [address] [place] [address] Phone Care Team Providers Care Orthopedic Shoe Fitter Name Role Phone Luke Elizabeth MD Primary Care Provider [phone] Allergies No known active allergies Medications Medication Sig Dispensed Refills Start Date End Date Status levothyroxine (SYNTHROID, LEVOTHROID) 75 MCG tablet 04/22/2013 Active TRADJENTA 5 MG tablet Take 1 tablet by mouth 1 (one) time each day 03/03/2019 Active dilTIAZem LA (CARDIZEM LA) 240 MG 24 hr tablet Take 240 mg by mouth 1 (one) time each day 08/29/2019 Active metFORMIN XR (GLUCOPHATE-XR) 500 MG 24 hr tablet Take 500 mg by mouth 1 (one) time each day 10/13/2019 Active Continuous Blood Gluc Sensor (FREESTYLE KERI 14 DAY SENSOR) misc See administration instructions 10/06/2019 Active atorvastatin (LIPITOR) 40 MG tablet Take 40 mg by mouth 1 (one) time each day 09/21/2021 Active Active Problems Problem Noted Date Diagnosed Date Tear of medial meniscus of knee 09/26/2018 Overview (10/12/2018): Added automatically from request for surgery [id number] Hypo-osmolality and hyponatremia 08/01/2014 Type 2 diabetes mellitus without complication Nonspecific elevation of lev els of transaminase and lactic acid dehydrogenase (LDH) 03/28/2014 Hypertensive chronic kidney disease with stage 1 through stage 4 chronic kidney disease, or unspecified chronic kidney disease 11/27/2013 Chronic kidney disease stage 3B 04/24/2013 Hyperlipidemia 04/24/2013 Immunizations Name Administration Dates Next Due Influenza TIV (IM) 01/11/2019 Pneumococcal Conjugate 04/12/2018 Tdap 01/12/2019 Family History Medical History Relation Comments Kidney disease Neg Hx Kidney stone Neg Hx Social History Tobacco Use Types Packs/Day Years Used Date Smoking Tobacco: Former Smokeless Tobacco: Never Alcohol Use Standard Drinks/Week Comments Yes 0 (1 standard drink = 0.6 oz pur e alcohol) AUDIT-C Answer Date Recorded Frequency of Alcohol Consumption 4 or more times a week 10/12/2018 Average Number of Drinks Not on file 019 Frequency of Binge Drinking Not on file 06/2018 Sex and Gender Information Value Date Recorded Sex Assigned at Not on file Gender Identity Not on file Sexual Orientation Not on file Last Filed Vital Signs Vital Sign Reading Time Taken Comments Blood Pressure 118/82 11/10/2021 2:27 PM CDT Pulse 84 11/10/2021 2:27 PM CDT Temperature 36.1 ??C (97 ??F) 11/10/2021 2:27 PM CDT Respiratory Rate - - Oxygen Saturation - - Inhaled Oxygen Concentration - - Weight 71.7 kg (158 lb) 11/10/2021 2:27 PM CDT Height 170.2 cm (5' 7 ) 11/10/2021 2:27 PM CDT Body Mass Index 24.75 11/10/2021 2:27 PM CDT Plan of Treatment Health Maintenance Due Date Last Done Comments Pneumococcal PPSV23/PCV13 65 + Years / Low and Medium Risk (1 of 4 - PCV) 02/04/2009 Influenza Vaccine (#1) 2023 01/11/2019 Care Teams Orthopedic Shoe Fitter Relationship Specialty Start Date End Date Luke Elizabeth MD [address] [facility] [address] [place] [id number] PCP - General Internal Medicine 05/01/19
--- OUTSIDE RECORDS SUMMARY | 2024-05-16 12:52 | XMS_ITS | Clinical Summary ---
Author Organization [facility] [employer] Address [address] [place] [address] Care Team Providers Care Triage Register Nurse Name Role Phone Rich Knight MD Unavailable [phone] Luke Elizabeth MD Primary Care Provider [phone] Source Comments [facility] [employer],non-owned Affiliates and Associated Physician Practices is amultiple site organization consisting of ambulatory clinics and hospital sitesin [place], [place], [place] and [place]. This disclosure is being madepursuant to the Care Everywhere program and may not contain all information available regarding this patient. Last updated 17.[facility] [employer] Allergies No known active allergies Medications * [...] mg by mouth once daily 03/03/2019 Active [place]-3 Fatty Acids (FISH OIL) 1000 MG capsule [...] Chronic kidney disease, stage 3 (moderate) 04/24 Family History Medical History Relation Name Comments CAD (Coronary Artery Disease) Father CAD (Coronary Artery Disease) Mother Allergy (Severe) Neg Hx CVA Neg Hx Cancer Neg Hx Cancer - Breast Neg Hx Cancer - Skin, Melanoma Neg Hx Cancer - Skin, Non Melanoma Neg Hx Eczema Neg Hx Hemophilia Neg Hx Psoriasis Neg Hx Rashes/Skin Problems Neg Hx Relation Name Status Comments Father Mother Social History Tobacco Use Types [...] Comments Blood Pressure 142/70 06/16/2019 7:54 AM INFORMATION SECURITY SYSTEMS INSTRUCTOR Pulse 69 06/16/2019 7:54 AM INFORMATION SECURITY SYSTEMS INSTRUCTOR Temperature 36.5 ??C (97.7 ??F) 06/16/2019 7:54 AM CS T Respiratory Rate 16 06/16/2019 7:54 AM INFORMATION SECURITY SYSTEMS INSTRUCTOR Oxygen Saturation 100% 06/16/2019 7:54 AM INFORMATION SECURITY SYSTEMS INSTRUCTOR Inhaled Oxygen Concentration - - Weight 78.6 kg (173 lb 3.2 oz) 06/14/2019 7:38 A M INFORMATION SECURITY SYSTEMS INSTRUCTOR Height 167.6 cm (5' 6 ) 06/14/2019 7:38 AM INFORMATION SECURITY SYSTEMS INSTRUCTOR s tated Body Mass Index 27.96 06/14/2019 7:38 AM INFORMATION SECURITY SYSTEMS INSTRUCTOR Plan of Treatment Upcoming Encounters Date Type Department Care Team (Late st Contact Info) Description 05/22/2024 3:40 PM INFORMATION SECURITY SYSTEMS INSTRUCTOR Office Visit [facility] [address] [facility], [address] [address] [place] [id number] [facility] [address] [place] [address] Health Maintenance Due Date Last Done Comments MEDICARE AWV ? 12 MONTHS 1945 DTAP/TDAP/TD VACCINES (1 - Tdap) 02/04/1963 PNEUMOCOCCAL VACCINE 50+ (1 of 2 - PCV) 02/04/1963 ZOSTER VACCINE (1 of 2) 02/04/1994 Respiratory Syncytial Virus (RSV) Vaccine Pt: or over 60 yrs (1 - 1-dose 75+ series) 02/04/2019 DIABETES RETINOPATHY SCREENING 04/07/2019 DIABETES-FOOT EXAM WITH MONOFILAMENT 04/07/2019 DIABETES-HGB A1C 11/23/2019 05/25/2019 DIABETES-SERUM CREATININE 06/15/20202019, 06/15/2019, 05/25/2019 COVID-19 VACCINE ( - 2023-2 5 season) 2023 INFLUENZA VACCINE (#1) 2023 01/11/2019 DEPRESSION SCREENING 04/12/2024 DIABETES - URINE PROTEIN SCREENING 04/12/2024 HEPATITIS B VACCINE Aged Out No longe r eligible based on patient's age to complete this topic HIB VACCINE Aged Out No longer eligi ble based on patient's age to complete this topic HPV VACCINE Aged Out No longer eligi ble based on patient's age to complete this topic MENINGOCOCCAL (Group B) VACCINE Aged Out No longer eligible b ased on patient's age to complete this topic MENINGOCOCCAL VACCINE Aged Out No tran bryce eligible based on patient's age to complete this topic Medical Devices Implanted Type Area Conference Services Coordinator Device Identifier Shelf Expiration Date Model / Serial / Lot Cmnt Bone Djo Srg Cblt 40gm Hvisc Strl Implanted:Qty: 1 on 06/14/2019 by Rich Knight MD at [facility] Right: Knee [employer] 01/13/2030 [id number] / / [id number] Tray Tib 75mm Kn Cocr I Beam Implanted:Qty: 1 on 06/14/2019 by Rich Knight MD at [facility] Right: Knee [employer] 04/15/2029 [id number] / / [id number] Cmpnt Fem Kn Rt Cr Cmnt Prm Vngrd Intlk Implanted:Qty: 1 on 06/14/2019 by Rich Knight MD at [facility] Right: Knee [employer] 02/13/2029 [id number] / / [id number] Cmpnt Ptlr 31mm 1 Pg Wire Ascnt Arcm Kn Implanted:Qty: 1 on 06/14/2019 by Rich Knight MD at [facility] Right: Knee [employer] 04/15/2024 [id number] / / [id number] [id number] Vngrd Arcm Kn Ant Stab Implanted:Qty: 1 on 06/14/2019 by Rich Knigth MD at [facility] Right: Knee [employer] 09/14/2023 [id number] / / [id number] Procedures Procedure Name Priority Date/Time Associated Diagnosis Comments BASIC METABOLIC PANEL (CALCIUM TOTAL) AM Draw 06/16/2019 4:36 AM INFORMATION SECURITY SYSTEMS INSTRUCTOR HEMOGLOBIN A1C STAT 05/25/2019 10:25 AM INFORMATION SECURITY SYSTEMS INSTRUCTOR Type 2 diabetes mellitus without complication, without long-term current use of insulin Pre-op evaluation from Last 3 Months or Most Recently Relevant to Health Maintenance Results * (ABNORMAL) BASIC METABOLIC PANEL (CALCIUM TOTAL) (06/16/2019 4:36 AM INFORMATION SECURITY SYSTEMS INSTRUCTOR) Glucose 140(H) 70 - 105 mg/dL 06/16/2019 5:31 AM INFORMATION SECURITY SYSTEMS INSTRUCTOR [facility] Sodium 137 136 - 145 mmol/L 06/16/2019 5:31 AM INFORMATION SECURITY SYSTEMS INSTRUCTOR [facility] Potassium 4.1 3.5 - 5.1 mmol/L 06/16/2019 5:31 AM INFORMATION SECURITY SYSTEMS INSTRUCTOR [facility] Chloride 104 98 - 107 mmol/L 06/16/2019 5:31 AM INFORMATION SECURITY SYSTEMS INSTRUCTOR [facility] CO2 24 23 - 31 mmol/L 06/16/2019 5:31 AM INFORMATION SECURITY SYSTEMS INSTRUCTOR [facility] Calcium 8.9 8.4 - 10.4 mg/dL 06/16/2019 5:31 AM INFORMATION SECURITY SYSTEMS INSTRUCTOR [facility] Anion Gap 9 8 - 16 mmol/L 06/16/2019 5:31 AM INFORMATION SECURITY SYSTEMS INSTRUCTOR [facility] BUN 26(H) 8.4 - 25.7 mg/dL 06/16/2019 5:31 AM INFORMATION SECURITY SYSTEMS INSTRUCTOR [facility] Creatinine 1.55(H) 0.72 - 1.25 mg/dL 06/16/2019 5:31 AM INFORMATION SECURITY SYSTEMS INSTRUCTOR [facility] eGFR by MDRD 44 mL/min/1.7 3m2 06/16/2019 5:31 AM INFORMATION SECURITY SYSTEMS INSTRUCTOR [facility] eGFR by MDRD 53 mL/min/1.7 3m2 06/16/2019 5:31 AM INFORMATION SECURITY SYSTEMS INSTRUCTOR [facility] Blood BLOOD SPECIMEN / Unknown Venipuncture / Unknown 06/16/2019 4:36 AM INFORMATION SECURITY SYSTEMS INSTRUCTOR 06/16/2019 4:58 AM INFORMATION SECURITY SYSTEMS INSTRUCTOR Feliz Mancuso DO LAB - CHEMISTRY OR DERABLES [facility] [address] [place] [address] * (ABNORMAL) HEMOGLOBIN A1C (05/25/2019 10:25 AM INFORMATION SECURITY SYSTEMS INSTRUCTOR) Hemoglobin A1c 6.9(H) 4.2 - 5.6 % 05/25/2019 10:38 AM [facility] Estimated Average Glucose 151 mg/dL 05/25/2019 10:38 AM [facility] Blood BLOOD SPECIMEN / Unknown Venipuncture / Unknown 05/25/2019 10:25 AM INFORMATION SECURITY SYSTEMS INSTRUCTOR 05/25/2019 10:28 AM INFORMATION SECURITY SYSTEMS INSTRUCTOR Narrative [facility] - 05/25/2019 10:38 AM INFORMATION SECURITY SYSTEMS INSTRUCTOR The following cutoff levels are recommended by [place] [employer]. ?? A1c ??> 6.5% : [...] exceeds 5% in the specimen. Leena Renee AIRPORT RAMP AGENT-FAST FOOD SERVICES MANAGER LAB - CHEM ISTRY ORDERABLES [facility] [address] [place] [address] from Last 3 Months or Most Recently Relevant to Health Maintenance Advance Directives * Full Code (Latest Code Status on File) Date Activated Date Inactivated Comments 06/14/2019 1:09 PM 06/16/2019 1:16 PM Care Teams Triage Register Nurse Relationship Specialty Start Date End Date Luke Elizabeth MD [address] [facility] [address] [facility] [address] [place] [id number] PCP - General 07/14/21 [place] [address] [address] Orthopedic Surgery 03/28/19
[2024-05-16 13:40] LABS: Add Urine Microscopic? YES; Appearance Urine Clear (Clear); Bacteria Urine None Seen /hpf; Bilirubin Urine Negative (Negative); Blood Urine Negative (Negative); Color Urine Yellow (Yellow); Glucose Urine UA 1+ mg/dL (Negative); Ketones Urine Negative (Negative); Leukocyte Esterase Ur Negative LEU/UL (Negative); Nitrate Urine Negative (Negative); Non Pathogenic Casts 0-2; Protein Urine 1+ mg/dL (Negative); RBC Urine 0-2 /hpf (0-2); Specific Grav Ur 1.015 (1.001-1.035); Squamous Epithelial Cell Urine None Seen /hpf (Few); Urobilinogen Urine 0.2 mg/dL (<2.0); WBC Urine 0-5 /hpf (0-3); pH Urine 5.5 (5.0-9.0)
== END 2024-05-16 12:45 | disposition home or self-care (01) ==
LOC: ANHLAB 12:46
PROVIDERS: PCP Internal Medicine; Visit Provider Internal Medicine
DX: R39.198 Other difficulties with micturition (principal)
CPT/HCPCS: 81001